=== PATIENT | female | born 1930 | race Caucasian/White ===

== ENCOUNTER → 2017-04-03 | Outpatient (CLI) | payer MEDICARE ==
[~2017-04-03] MED LIST: AMLO10TA; AMLO10TAB; AMOX500C; FLUC10TA; GLUCOSAMINE; MOTR200T4; VICO5TAB; VITMTA PO; [UNRECOGNIZED DRUG - OTHER]
--- NOTE | 2017-04-03 15:07 | REP ---
THORACIC SPINE: AP and lateral views of the thoracic spine are performed and compared to a prior study of 03/01/2017. There are stable compression deformities of T4 and T5. T7 demonstrates a fairly severe compression deformity which has increased since prior study. There is new moderate compression deformity of T10. A mild compression deformity of L1 is stable. There is accentuation of thoracic kyphosis. There is diffuse osteopenia. There is mild diffuse spurring. There is mild diffuse disc space narrowing. There is curvature of the thoracolumbar spine convex to the right. IMPRESSION: Increased significant compression deformity of T7. New moderate compression deformity of T10. Stable compression deformities of T4, T5, and L1. Signed by Linden Mandel MD 04/03/2017 05:27 P
--- NOTE | 2017-04-04 08:05 | REP ---
LUMBOSACRAL SPINE: Five views of the lumbosacral spine performed. There is an old compression deformity of L1 which is stable compared to prior exam at [facility] 03/01/2017. No new compression fracture is seen. There is minimal anterior listhesis of L5 on S1 which appears to be due to posterior facet arthropathy. There is mild diffuse spurring. There is moderate disc space narrowing and subchondral sclerosis at L1-2, L2-3, and L5-S1. There is sclerosis at the posterior facet joints. Posterior elements appear intact. There is sclerosis at the sacroiliac joints. Diffuse vascular calcifications are present. There are multiple metallic clips in the pelvis. IMPRESSION: Degenerative changes. Old mild compression deformity L1 with no acute compression fracture. Signed by Linden Mandel MD 04/03/2017 05:28 P
== END ==
LOC: M RAD 13:13
PROVIDERS: ATTEND Chiropractor
DX: M51.36 Other intervertebral disc degeneration, lumbar region (principal); M51.37 Other intervertebral disc degeneration, lumbosacral region; Z87.81 Personal history of (healed) traumatic fracture

== ENCOUNTER 2017-04-28 10:22 | Day surgery (SDC) | payer MEDICARE ==
[2017-04-28] MEDS: LIDOCAINE VISCOUS 2% SOLN 15ML UDC PO (12:11)
[2017-04-28] MEDS ORDERED: ONDANSETRON 4MG/2ML VIAL (J2405) As Ordered (17:15)
[2017-04-28] MEDS ORDERED: PROPOFOL 200 MG/20 ML VIAL As Ordered ×2 (17:15)
[2017-04-28] MEDS ORDERED: LR 1,000 ML IV (18:00)
[2017-04-28] MEDS ORDERED: ONDANSETRON 4MG/2ML VIAL (J2405) IV (18:00)
== END 2017-04-28 19:30 | disposition home or self-care (01) ==
LOC: M ED 10:22 → M SDC 13:13 → M PED 14:45 → M SDC 19:30
DX: T18.128A Food in esophagus causing other injury, initial encounter (principal); Q39.4 Esophageal web; K22.2 Esophageal obstruction; K44.9 Diaphragmatic hernia without obstruction or gangrene; I10 Essential (primary) hypertension; K21.9 Gastro-esophageal reflux disease without esophagitis; Z88.1 Allergy status to other antibiotic agents; Z88.2 Allergy status to sulfonamides; Z90.710 Acquired absence of both cervix and uterus; X58.XXXA Exposure to other specified factors, initial encounter; Y93.89 Activity, other specified; Y92.89 Other specified places as the place of occurrence of the external cause; Y99.8 Other external cause status
CPT/HCPCS: 43247

== ENCOUNTER 2018-05-19 21:04 | Inpatient (IN) | payer MEDICARE ==
[~2018-05-19] VITALS: Ht 154.9 cm; Wt 58.0 kg
[~2018-05-19 21:04] MED LIST changes: +AMLO10TA5 PO; +AMLO5TAB6; +METO1TAB7; +METO1TAB7 PO
[2018-05-19 22:10] LABS: BASO % 0.5 % (0.0-1.0); EOS # 0.1 10^3/uL (0.0-0.50); EOS % 1.9 % (0.0-3.0); HEMATOCRIT 34.2 % (36.0-47.0); HEMOGLOBIN 11.8 g/dl (12.0-15.5); LYMPH # 1.2 10^3/uL (1.5-4.5); LYMPH % 33.2 % (24.0-44.0); MEAN CORPUSCULAR HEMOGLOBIN 33.2 pg (27.0-33.0); MEAN CORPUSCULAR HGB CONC 34.5 g/dl (32.0-36.5); MEAN CORPUSCULAR VOLUME 96.3 fl (80.0-96.0); MONO # 0.4 10^3/uL (0.0-0.8); MONO % 11.1 % (0.0-5.0); NEUTROPHILS % 53.3 % (36.0-66.0); PLATELET COUNT, AUTOMATED 184 10^3/uL (150-450); RED BLOOD COUNT 3.55 10^6/uL (4.00-5.40); WHITE BLOOD COUNT 3.7 10^3/uL (4.0-10.0)
[2018-05-19 22:14] LABS: INR 0.92; PROTHROMBIN TIME 12.5 SECONDS (12.1-14.4)
[2018-05-19 22:15] LABS: PARTIAL THROMBOPLASTIN TIME 26.4 SECONDS (25.4-37.6)
[2018-05-19 22:18] LABS: BLOOD UREA NITROGEN 5 MG/DL (7-18); CALCIUM LEVEL 8.2 MG/DL (8.8-10.2); CARBON DIOXIDE LEVEL 25 MEQ/L (21-32); CHLORIDE LEVEL 90 MEQ/L (98-107); CREATININE FOR GFR 0.48 MG/DL (0.55-1.30); GLOMERULAR FILTRATION RATE > 60.0 (>32); GLUCOSE, FASTING 108 MG/DL (70-100); POTASSIUM SERUM 3.7 MEQ/L (3.5-5.1); SODIUM LEVEL 126 MEQ/L (136-145)
[2018-05-19] MEDS ORDERED: ATEN50TA2 PO (22:58)
[2018-05-19] MEDS ORDERED: LOSA50TA5 PO (22:58)
[2018-05-19] MEDS ORDERED: MORPHINE 10 MG/ML 1ML VIAL (J2270) IV ONE (23:00)
[2018-05-19] MEDS ORDERED: D5W/0.45% SODIUM CHLORIDE 1,000 ML IV SCH (23:07)
[2018-05-19] MEDS ORDERED: PERCOCET 5MG/325MG TAB PO PRN (23:15)
[2018-05-19] MEDS ORDERED: MORPHINE 4 MG/ML 1ML VIAL/SYRINGE (J2270) IV PRN (23:15)
[2018-05-19] MEDS: DOCUSATE SODIUM 100 MG CAP PO SCH (23:40)
[2018-05-19] MEDS: ATENOLOL 50 MG TAB PO SCH (23:48)
[2018-05-20] MEDS ORDERED: MORPHINE 4 MG/ML 1ML VIAL/SYRINGE (J2270) As Ordered ONE (03:11)
[2018-05-20] MEDS ORDERED: MORPHINE 4 MG/ML 1ML VIAL/SYRINGE (J2270) IV ONE (03:15)
[2018-05-20] MEDS: HEPARIN SOD (PORCINE) 5000 UNITS/ML VIAL SC SCH ×3 (06:11→21:00)
[2018-05-20 07:36] LABS: HEMATOCRIT 30.8 % (36.0-47.0); HEMOGLOBIN 10.7 g/dl (12.0-15.5); MEAN CORPUSCULAR HEMOGLOBIN 32.9 pg (27.0-33.0); MEAN CORPUSCULAR HGB CONC 34.7 g/dl (32.0-36.5); MEAN CORPUSCULAR VOLUME 94.8 fl (80.0-96.0); PLATELET COUNT, AUTOMATED 169 10^3/uL (150-450); RED BLOOD COUNT 3.25 10^6/uL (4.00-5.40); WHITE BLOOD COUNT 5.5 10^3/uL (4.0-10.0)
[2018-05-20 08:00] VITALS: BP 146/68
[2018-05-20] MEDS ORDERED: VANCOMYCIN HCL 1,000 MG, VIAL MATE ADAPTER 1 EACH in D5W 250 ML IV ONE (08:00)
[2018-05-20 08:09] LABS: APPEARANCE, URINE CLOUDY (CLEAR); BACTERIA, URINE AUTO 3+ (NEGATIVE); BILIRUBIN, URINE AUTO NEGATIVE (NEGATIVE); BLOOD, URINE BLOOD NEGATIVE (NEGATIVE); COLOR, URINE AMBER (YELLOW); GLUCOSE, URINE (UA) AUTO NEGATIVE (NEGATIVE); KETONE, URINE AUTO TRACE mg/dL (NEGATIVE); LEUKOCYTE ESTERASE, URINE AUTO 1+ (NEGATIVE); MUCUS, URINE SMALL (NEGATIVE); NITRITE, URINE AUTO NEGATIVE (NEGATIVE); PROTEIN, URINE AUTO NEGATIVE (NEGATIVE); RBC, URINE AUTO 1 /HPF (0-3); SPECIFIC GRAVITY URINE AUTO 1.012 (1.002-1.035); SQUAMOUS EPITHELIAL CELL UR AU 0 /HPF (0-6); UROBILINOGEN, URINE AUTO 0.2 mg/dL (0.0-2.0); WBC, URINE AUTO 16 /HPF (0-3)
[2018-05-20 08:10] LABS: BLOOD UREA NITROGEN 6 MG/DL (7-18); CALCIUM LEVEL 7.8 MG/DL (8.8-10.2); CARBON DIOXIDE LEVEL 27 MEQ/L (21-32); CHLORIDE LEVEL 89 MEQ/L (98-107); CPK CREATINE PHOSPHOKINASE 270 U/L (26-192); CREATININE FOR GFR 0.56 MG/DL (0.55-1.30); GLOMERULAR FILTRATION RATE > 60.0 (>32); GLUCOSE, FASTING 134 MG/DL (70-100); MB/CK RELATIVE INDEX 1.81 (< OR =4); POTASSIUM SERUM 3.8 MEQ/L (3.5-5.1); SODIUM LEVEL 125 MEQ/L (136-145); TROPONIN I < 0.02 NG/ML (< 0.10)
--- NOTE | 2018-05-20 08:13 | REP ---
Right femur: Three views. History: Trauma. Findings: Three views right femur demonstrate a overriding comminuted spiral fracture of the subtrochanteric right femur. There is lateral displacement. Electronically Signed by Ronan Aranda MD 05/20/2018 08:05 A
--- NOTE | 2018-05-20 08:16 | REP ---
Pelvis right hip: Three views. History: Trauma. Findings: AP view of the pelvis and AP and frog-leg views of the right hip are obtained. There is a spiral fracture of the subtrochanteric right femur with medial displacement and override. There is diffuse osteopenia. No acute pelvic fracture is seen. There is sclerosis on the iliac sides of the SI joints bilaterally which may reflect a healing insufficiency fractures. Vascular calcification and post surgical clips are noted. Bowel gas pattern is normal. Impression: Comminuted spiral subtrochanteric right femur fracture with medial override. Diffuse osteopenia. Electronically Signed by Ronan Aranda MD 05/20/2018 08:08 A
--- NOTE | 2018-05-20 08:18 | REP ---
Chest x-ray: Single AP view. History: Trauma. Comparison study: December 10, 2007. Findings: The lungs are well inflated and clear. Heart size is borderline unchanged. The aorta is calcific and tortuous. There is diffuse osteopenia. No infiltrate is seen. Pulmonary vasculature is not increased. Impression: Borderline heart size. Otherwise no acute disease. Electronically Signed by Ronan Aranda MD 05/20/2018 08:09 A
[2018-05-20 08:34] LABS: CHLORIDE,RANDOM URINE 74 MEQ/L; POTASSIUM RANDOM URINE 75.7 MEQ/L; SODIUM,RANDOM URINE 55 MEQ/L; URIC ACID,RANDOM URINE 67.1 MG/DL
[2018-05-20] MEDS ORDERED: ACETAMINOPHEN 500 MG TAB PO PRN (09:00)
[2018-05-20] MEDS: DOCUSATE SODIUM 100 MG CAP PO SCH (09:39)
[2018-05-20] MEDS: LOSARTAN 50 MG TAB PO SCH (09:40)
--- NOTE | 2018-05-20 10:23 | CR ---
DATE OF CONSULTATION: 05/20/2018 CHIEF COMPLAINT: Right subtrochanteric femur fracture. HISTORY OF PRESENT ILLNESS: 88-year-old female who was eating cookies with her daughter yesterday at approximately 2:30 p.m. She went to grab some scissors, tripped and fell over her slippers sustaining a twisting injury to her right hip. She was not able to ambulate after that. There was no loss of consciousness or head injury. She has not had any injury like this before but she did have an episode where she slipped over her slippers. She was at her grandson's place. There is no prior pain in the hip prior to this injury. PAST MEDICAL HISTORY: Hypertension. MEDICATIONS AT HOME: - Losartan 50 mg by mouth once daily - atenolol 50 mg by mouth once daily at bedtime DRUG ALLERGIES: CEPHALOSPORINS, CLINDAMYCIN, QUINOLONES, SULFA DRUGS, SULFA DRUG CROSS REACTORS, TETRACYCLINE MEDICATIONS. SURGICAL HISTORY: Hysterectomy. SOCIAL HISTORY: She lives alone. Her is . She lives in a house that is one story. She is a non-smoker. PHYSICAL EXAMINATION: Vital signs: 140/64, pulse 55, respiratory rate 18, 96% on room air. Alert and oriented times three. Mood is pleasant. Affect is positive, slightly anxious. Right lower extremity was placed in traction by the nurses. Upon inspection of both lower extremities, there is a little bit of swelling and deformity to the right proximal femur. Nothing on the left side. There is a moderate amount of tenderness at that site and in the groin. Nothing distal or on the left side. She is able to wiggle her toes and dorsal flex and plantar flex her feet on both sides. Feet are warm and well perfused. Strong dorsalis pedis pulse on both sides. LABORATORY: Hemoglobin of 10.7 this morning, white blood cell count 5.5. Coagulation factors: PT 12.5, INR 0.92. Chemistries reveal low sodium and low chloride. RADIOGRAPHS: AP and frogleg lateral x-ray of the right hip and pelvis reveal a short spiral fracture of the subtrochanteric region of the right hip. There is no obvious fracture distally. No obvious femoral head, neck, or shaft fracture seen. ASSESSMENT AND PLAN: This 88-year-old female with right subtrochanteric hip fracture needs to first clear medicine from the hospitalist point of view, this is Dr. Alba. Apparently they need a echo and this will delay the surgery to be scheduled tomorrow so for now, we will make her diet and tolerated and n.p.o. at midnight. She is on subcutaneous heparin which we will hold tomorrow morning the day of surgery. I have discussed and consented for surgery with risks, alternatives and benefits discussed with the patient for open reduction internal fixation of the right hip in the form of long cephalomedullary nail. Options for this would include TFN-A or reconstruction nail. We should try to get this done within 48 hours ideally but given the condition apparently of her heart, this will delay her surgery until 24 hours post admission. For now, she will be bed rest and pain control with Tylenol and opioid medications. JENN
--- NOTE | 2018-05-20 10:44 | HPE ---
DATE OF ADMISSION: 05/19/2018 CHIEF COMPLAINT: Hip pain, status post fall, femur fracture. HISTORY OF PRESENT ILLNESS: Patient is an 88-year-old female with a significant past medical history of well controlled hypertension. She also has a history of complicated diverticulitis, she is status post surgery with colostomy that is in place. She states that they thought it might have been cancer but, however, it turned out to be all infectious diverticulitis. She present to the emergency room after a mechanical fall with intractable right hip pain, unable to ambulate. X-rays of the hip and pelvis shows a femur fracture. She denies any loss of consciousness. She denies any palpitations, cough, chest pain, urinary symptoms, abdominal pain, constipation, or diarrhea. Her colostomy bag is draining appropriately. PAST MEDICAL HISTORY: Hypertension. PAST SURGICAL HISTORY: She has had hysterectomy and colostomy. HOME MEDICATIONS: - losartan - hydrochlorothiazide - atenolol ALLERGIES: CEPHALOSPORINS, CLINDAMYCIN, QUINOLONES, SULFA DRUGS, SULFA DRUG CROSS REACTOR, TETRACYCLINE, old reactions are unknown. SOCIAL HISTORY: Denies tobacco, alcohol, or illicit drug use. FAMILY HISTORY: No family history of premature coronary artery disease (CAD). REVIEW OF SYSTEMS: A 12 point review of system was completed all which were negative except those listed in the history of present illness. ADMISSION: VITALS: Temperature 97.4, pulse 53, respirations 20, sating at 99% on room air. Blood pressure 125/58. PHYSICAL EXAMINATION: GENERAL: She is well nourished and in no apparent distress. Head is normocephalic, atraumatic. Eyes extraocular movements are intact. Pupils equal round and reactive to light. NECK: Supple, no jugular venous pulse (JVP). LUNGS: Clear to auscultation. No crackles, wheezes, rales, or rhonchi. CARDIOVASCULAR: Regular rate and rhythm. Normal S1, S1. No murmurs, gallops or rub. ABDOMEN: Soft, nontender, nondistended. Colostomy bag in place draining. EXTREMITIES: No pitting edema or calf tenderness. Over the hip there is no erythema. NEUROLOGICAL EXAM: Alert and oriented times three. No focal deficit appreciated in the exam. LABS AND IMAGING DONE IN THE EMERGENCY ROOM: White count 3.7, hemoglobin and hematocrit 11 over 34, platelet count of 184, coags within normal limits. Chemistries - shows a sodium of 126, chloride of 90, BUN and creatinine of 5 and 0.48. Imaging done in the emergency room - a chest x-ray shows cardiomegaly in the prominent aortic notch, otherwise no acute disease. X-ray of the hip and pelvis shows a fracture of the femur. ASSESSMENT AND PLAN: Femur fracture status post mechanical fall, bedrest for now. Dr. Trinidad of orthopedics to see her in the a.m. Nothing by mouth after midnight. D5 half-normal saline. Morphine and Percocet as needed pain control. Colace as well is on for bowel prep. The patient has a revised cardiac risk index of 0 which is a 3.9% cardiovascular risk of surgery. Her EKG shows nonspecific ST and T wave changes. She has no family history of premature CAD. She denies any chest pain or shortness of breath on ambulation, however, she ambulates very minimally. She has no exercise limiting symptoms. Because of the nonspecific ST and T wave changes we will order and echocardiogram and relatively sedentary lifestyle for the patient for clearance. For hypertension we will continue losartan and atenolol, blood pressure is controlled. We will hold the hydrochlorothiazide portion of her blood pressure medication as she is mildly hypernatremic at 126, hyponatremia likely secondary to diuretic therapy. We will hold her hydrochlorothiazide. Supportive deep venous thrombosis (DVT) prophylaxis, heparin subcutaneous, gastrointestinal (GI) prophylaxis is not indicated. Diets - nothing by mouth after midnight. She is on maintenance D5 half normal saline at 60 mL an hour. Fingersticks twice a day while nothing by mouth. Activity - bedrest.
[2018-05-20] MEDS ORDERED: PILL CRUSHER/CUTTER 1 EACH XX PRN (11:45)
[2018-05-20 12:00] VITALS: BP 144/67
[2018-05-20] MEDS ORDERED: MORPHINE 4 MG/ML 1ML VIAL/SYRINGE (J2270) IV PRN (12:00)
[2018-05-20] MEDS ORDERED: NS 1,000 ML IV ONE (12:00)
[2018-05-20] MEDS: PERCOCET 5MG/325MG TAB PO PRN ×2 (12:32→21:01)
[2018-05-20 13:53] LABS: CPK CREATINE PHOSPHOKINASE 297 U/L (26-192); MB/CK RELATIVE INDEX 1.82 (< OR =4); TROPONIN I < 0.02 NG/ML (< 0.10)
[2018-05-20 14:30] VITALS: BP 157/71
[2018-05-20 16:35] LABS: BLOOD UREA NITROGEN 7 MG/DL (7-18); CARBON DIOXIDE LEVEL 26 MEQ/L (21-32); CHLORIDE LEVEL 91 MEQ/L (98-107); CREATININE FOR GFR 0.53 MG/DL (0.55-1.30); GLOMERULAR FILTRATION RATE > 60.0 (>32); GLUCOSE, FASTING 124 MG/DL (70-100); POTASSIUM SERUM 3.7 MEQ/L (3.5-5.1); SODIUM LEVEL 125 MEQ/L (136-145)
--- NOTE | 2018-05-20 18:05 | IPN ---
DATE: 05/20/2018 The patient admitted overnight. Reported right hip pain. Denies any chest pain, pressure or discomfort. Denies any fevers or chills. VITAL SIGNS: Temperature 97.7, pulse 53, respiratory rate 16, blood pressure 144/67, pulse oximetry 97% on room air. LABORATORY DATA: WBC 5.5, hemoglobin and hematocrit 10.7/30.8, platelets 169. Chemistry: Sodium 125, potassium 3.7, chloride 91, bicarbonate 26, BUN 7, creatinine 0.53. Cardiac enzymes negative times two. PHYSICAL EXAMINATION: GENERAL: The patient alert, comfortable, in no acute distress. HEENT: Normocephalic, atraumatic. PULMONARY: Bilaterally clear. CARDIAC: Regular, S1, S2. No murmurs detected. ABDOMEN: Soft, nontender. Colostomy bag in place draining. EXTREMITIES: No clubbing, cyanosis, or edema. ASSESSMENT AND PLAN: This is an 88-year-old female patient, baseline healthy, lives at home, is independent with history of hypertension as well as complicated diverticulitis with also small bowel obstruction complicated with colostomy, who presented with a mechanical fall. 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 The patient had mechanical fall with femur fracture. 1. Mechanical fall with femur fracture. The patient is low-intermediate risk for intermediate risk procedure. Given new EKG changes with T wave inversion on V3, V4, serial cardiac enzyme was done. Echocardiogram was also ordered by nighttime provider. Currently pending echocardiogram results. Holding hydrochlorothiazide given hyponatremia. Preoperative optimization pending echocardiogram results and nephrology input. 2. 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 Urine study appreciated. Nephrology consulted. Followup sodium. The patient currently asymptomatic. 3. Hypertension. Continue atenolol, losartan. Holding hydrochlorothiazide. We will monitor the patient on telemetry. If the patient develops worsening bradyarrhythmia, we will discontinue atenolol. Currently, the patient has a heart rate in the range of 50s. Telemetry monitoring. 4. Colostomy. Management as per nursing staff. 5. Deep vein thrombosis (DVT) prophylaxis. Heparin subcutaneous. Likely will be on Xarelto postoperatively. DISPOSITION: Likely going to operating room (OR) tomorrow pending echocardiogram and nephrology consultation for hyponatremia.
[2018-05-20] MEDS: SENOKOT S TAB PO SCH (21:00)
[2018-05-20] MEDS ORDERED: TOLVAPTAN 7.5 MG HALF-TAB PO ONE (21:00)
[2018-05-20] MEDS: ATENOLOL 50 MG TAB PO SCH (21:00)
[2018-05-20 22:00] VITALS: BP 152/67
[2018-05-20 23:50] VITALS: BP 125/63
[2018-05-21] VITALS (7 sets, daily range): BP systolic 121–170; BP diastolic 64–78
[2018-05-21] MEDS ORDERED: VANCOMYCIN HCL 1,000 MG, VIAL MATE ADAPTER 1 EACH in D5W 250 ML IV ONE (06:00)
[2018-05-21] MEDS: HEPARIN SOD (PORCINE) 5000 UNITS/ML VIAL SC SCH (06:04)
--- NOTE | 2018-05-21 06:11 | ECHO ---
DATE OF PROCEDURE: 05/20/2018 REFERRING PHYSICIAN: Dr. Trudy Alba INDICATION: Abnormal ECG. HEIGHT: 155 cm. WEIGHT: 80 kg. 2-D MEASUREMENTS: Proximal ascending aorta: 3.5 cm Ventricular septum: 0.96 cm Posterior wall: 0.98 cm Left ventricle diastole: 4.6 cm Aortic root: 2.6 cm Left atrium: 3.5 cm Aortic annulus: 2.0 cm Inferior vena cava: 1.6 cm DOPPLER MEASUREMENTS: Mild aortic regurgitation No aortic stenosis Aortic valve velocity: 124 cm/sec LVOT velocity: 112 cm/sec LVOT VTI: 28.7 cm Mitral E velocity: 56.2 cm/sec Mitral A velocity: 89.3 cm/sec Mitral deceleration time: 264 ms Very mild tricuspid regurgitation Estimated right ventricular systolic pressure 26 mmHg assuming a right atrial pressure of 5 mmHg Pulmonary artery systolic pressure 24 mmHg by pulmonary acceleration time method MITRAL ANNULAR TISSUE DOPPLER: E prime lateral: 6.4 cm/sec E prime septal: 5.2 cm/sec DESCRIPTION: The rhythm was sinus bradycardia. Image quality was adequate. No pericardial effusion. This was a 2-D, M-mode, color flow Doppler and pulse wave Doppler examination and included mitral annular tissue Doppler. CONCLUSIONS: 1. Normal left ventricle internal dimensions and wall thickness. Normal regional LV wall motion and wall thickening. Normal LV systolic function. Grade 1 LV diastolic dysfunction (impaired relaxation filling pattern). 2. 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 Mild aortic regurgitation. No aortic stenosis. 3. Moderate mitral annular calcification. No mitral regurgitation or mitral stenosis. 4. Otherwise normal appearing echocardiogram-Doppler findings.
[2018-05-21 06:43] LABS: HEMATOCRIT 28.7 % (36.0-47.0); HEMOGLOBIN 9.9 g/dl (12.0-15.5); MEAN CORPUSCULAR HEMOGLOBIN 32.9 pg (27.0-33.0); MEAN CORPUSCULAR HGB CONC 34.5 g/dl (32.0-36.5); MEAN CORPUSCULAR VOLUME 95.3 fl (80.0-96.0); PLATELET COUNT, AUTOMATED 156 10^3/uL (150-450); RED BLOOD COUNT 3.01 10^6/uL (4.00-5.40); WHITE BLOOD COUNT 2.9 10^3/uL (4.0-10.0)
[2018-05-21 07:16] LABS: BLOOD UREA NITROGEN 6 MG/DL (7-18); CALCIUM LEVEL 8.4 MG/DL (8.8-10.2); CARBON DIOXIDE LEVEL 27 MEQ/L (21-32); CHLORIDE LEVEL 97 MEQ/L (98-107); CREATININE FOR GFR 0.43 MG/DL (0.55-1.30); GLOMERULAR FILTRATION RATE > 60.0 (>32); GLUCOSE, FASTING 105 MG/DL (70-100); MAGNESIUM LEVEL 1.7 MG/DL (1.8-2.4); POTASSIUM SERUM 3.6 MEQ/L (3.5-5.1); SODIUM LEVEL 132 MEQ/L (136-145)
--- NOTE | 2018-05-21 07:29 | IPN ---
DATE: 05/21/2018 CHIEF COMPLAINT: Right subtrochanteric hip fracture. HISTORY OF PRESENT ILLNESS: This pleasant 88-year-old female was seen today, post admit day 1 for right subtrochanteric hip fracture. She is doing well. She is in the Antonio traction splint for her right lower extremity, tolerating this well. She does not have any specific complaints other than relaying an anecdote about seeing another provider at the [facility]. She complains about a little bit of discomfort in her hip, but overall she is doing well. PHYSICAL EXAMINATION: VITAL SIGNS: 98.1 temperature, 125/63 blood pressure, pulse rate of 48, respiratory rate 18, 97% on room air. She is alert and oriented times three. She easy to converse with. Mood and affect is pleasant and positive. Her right lower extremity is still in the Antonio splint/traction setup. She appears to be tolerating this well. It is not causing any skin irritation or breakdown. She is able to wiggle her toes, dorsiflex and plantar flex her foot. She has normal sensation throughout the foot in the superficial and deep peroneal nerves as well as saphenous, sural and tibial. She has good strong dorsalis pedis pulse. Her hip is marked. Her left lower extremity is normal. Laboratory exam reveals a hemoglobin this morning of 9.9. WBC 2.9. Coagulation not repeated. Chemistry - Sodium appears to be trending upward from 126 on admission to 132 this morning. Her chloride 92, 97 this morning. ASSESSMENT/PLAN: This 88-year-old female I am planning to do a cephalomedullary nail to fix her subtrochanteric femur fracture at some point this afternoon. We are still awaiting clearance from the web application dev specialist. Her echo looked fairly benign when I read the report today so I do not expect her cardiac function will delay her surgery, but we are waiting on nephrology to give the final clearance before going ahead with surgery. For now we will ensure that she remains nothing by mouth.
[2018-05-21] MEDS ORDERED: MAG SULF 1GM/100ML (MAG RUN) 1 GM in APPROPRIATE DILUENT 1 EA IV ONE (08:15)
[2018-05-21] MEDS ORDERED: POTASSIUM CHLORIDE 10 MEQ SR TABLET PO ONE (08:15)
[2018-05-21] MEDS: SENOKOT S TAB PO SCH ×2 (09:15→22:37)
[2018-05-21] MEDS: LOSARTAN 50 MG TAB PO SCH (09:15)
[2018-05-21] MEDS ORDERED: cefTRIAXone SOD 1 GM in D5W MINI-BAG PLUS 50 ML IV SCH (09:45)
[2018-05-21] MEDS: KCL 10MEQ/100ML SWI (KRUN) 10 MEQ in APPROPRIATE DILUENT 1 EA IV SCH ×4 (10:19→12:32)
[2018-05-21] MEDS ORDERED: ceFAZolin 1GM INJ (J0690 PER 500MG) As Ordered ONE (13:32)
[2018-05-21] MEDS: AMOXICILLIN 500 MG CAP PO SCH ×2 (14:00→22:36)
--- NOTE | 2018-05-21 14:39 | IPNPDOC ---
Text Note Date of Service The patient was seen on 05/21/18. NOTE Subjective: Pt feels well. Pain well controlled. States she had a mechanical f all. No dizziness/syncope/CP prior to fall. Ambulates in the grocery stores at baseline down aisles with no SOB/CP. Objective: Vitals: (see below) General: No acute distress, laying comfortably in bed. HEENT: Moist mucous membranes. Neck: No JVD or lymphadenopathy Cardiac: RRR, No murmurs Pulm: Clear to auscultation b/l. No wheezing, rhonchi Abd: NT/ND + BS. Colostomy bag with no leak. No abdominal pain. Ext: No edema or cyanosis. Distal pulse intact. Right leg in traction. Labs (see below) Images: Echocardiogram on 05/20/18 CONCLUSIONS: 1. Normal left ventricle internal dimensions and wall thickness. Normal regional LV wall motion and wall thickening. Normal LV systolic function. Grade 1 LV diastolic dysfunction (impaired relaxation filling pattern). 2. 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 Mild aortic regurgitation. No aortic stenosis. 3. Moderate mitral annular calcification. No mitral regurgitation or mitral stenosis. 4. Otherwise normal appearing echocardiogram-Doppler findings. Assessment/Plan 1. Hip fracture status post mechanical. Right lower extremity in traction, pending OR. Denies chest pain or palpitations. Echo at that she see above). Management per orthopedics. 2. History of recurrent UTIs. + UA, however no dysuria. States she takes amoxicillin when she has UTIs. 3. Hyponatremia- hydrochlorothiazide discontinued. Component of SIADH. Status post tolvaptan. Appreciate nephrology input. 4. Hypertension controlled. Continue valsartan. Hold atenolol given bradycardia. Hold HCTZ 5. History of diverticulitis status post colostomy. DVT prophy: Per orthopedics RCRI 0. Patient undergo an intermediate risk procedure. VS,Fishbone, I+O VS, Fishbone, I+O Laboratory Tests 05/20/18 15:59 Calcium Level 8.0 L 05/21/18 05:41 Calcium Level 8.4 L, Red Blood Count 3.01 L, Mean Corpuscular Volume 95.3, Mean Corpuscular Hemoglobin 32.9, Mean Corpuscular Hemoglobin Concent 34.5, Red Cell Distribution Width 12.3 Vital Signs Date Time Temp Pulse Resp B/P (MAP) Pulse Ox O2 Delivery O2 Flow Rate FiO2 05/21/18 09:15 124/60 05/21/18 06:00 97.9 57 18 97 05/19/18 23:53 Room Air I&O- Last 24 Hours up to 6 AM 05/21/18 06:00 Intake Total 1350 ml Output Total 1950 ml Balance -600 ml ZION MILTON MD May 21, 2018 14:39
[2018-05-21] MEDS ORDERED: dexameTHASONE 4 MG/ML 1ML VIAL (J1100) As Ordered ONE (17:52)
[2018-05-21] MEDS ORDERED: ePHEDrine SULFATE 25 MG/5 ML(5MG/ML) SYRINGE As Ordered ONE (17:52)
[2018-05-21] MEDS ORDERED: PROPOFOL 200 MG/20 ML VIAL As Ordered ONE (17:52)
[2018-05-21] MEDS ORDERED: ROCURONIUM BROMIDE 50 MG/5 ML VIAL As Ordered ONE (17:52)
[2018-05-21] MEDS ORDERED: fentaNYL 100 MCG/2 ML INJECTION (J3010) As Ordered ONE ×2 (17:52→20:04)
[2018-05-21] MEDS ORDERED: MIDAZOLAM INJ 2 MG/2 ML VIAL (J2250) As Ordered ONE (17:52)
[2018-05-21] MEDS ORDERED: LIDOCAINE 2% INJ 100 MG/5 ML SDV (FOR ANES.) As Ordered ONE (17:52)
[2018-05-21] MEDS ORDERED: HYDROmorphone HCL 2 MG/ML 1ML VIAL (J1170) As Ordered ONE (18:21)
[2018-05-21] MEDS ORDERED: TRANEXAMIC ACID 100 MG/ML 10ML VIAL As Ordered ONE (18:37)
[2018-05-21] MEDS ORDERED: GLYCOPYRROLATE INJ 0.2 MG/ML 2 ML VIAL As Ordered ONE (19:09)
[2018-05-21] MEDS ORDERED: PHENYLephrine HCL 500 MCG/5 ML (100MCG/ML) SYRINGE (J2370) As Ordered ONE (19:13)
[2018-05-21] MEDS ORDERED: ONDANSETRON 4MG/2ML VIAL (J2405) As Ordered ONE (19:30)
[2018-05-21] MEDS ORDERED: NEOSTIGMINE 10 MG/10 ML VIAL (J2710) As Ordered ONE (19:38)
[2018-05-21] MEDS ORDERED: fentaNYL 100 MCG/2 ML INJECTION (J3010) IV PRN (20:15)
[2018-05-21] MEDS ORDERED: NORCO, ANEXSIA 5/325MG TABLET (HYDROcodone/ACETAMINOPHEN) PO PRN (20:15)
[2018-05-21] MEDS ORDERED: MORPHINE 4 MG/ML 1ML VIAL/SYRINGE (J2270) IV PRN (20:15)
[2018-05-21] MEDS ORDERED: ONDANSETRON 4 MG TAB (S0181) PO PRN (20:15)
[2018-05-21] MEDS ORDERED: FLEET ENEMA PR PRN (20:15)
[2018-05-21] MEDS ORDERED: LR 1,000 ML IV SCH (20:15)
[2018-05-21] MEDS ORDERED: ACETAMINOPHEN TAB 650MG DOSE (2X325MG) PO PRN (20:15)
[2018-05-21] MEDS ORDERED: ONDANSETRON 4MG/2ML VIAL (J2405) IV PRN ×2 (20:15)
--- NOTE | 2018-05-21 21:09 | CR ---
DATE OF CONSULTATION: 05/21/2018 REQUESTING PHYSICIAN: Dr. Trudy Alba CONSULTING PHYSICIAN: Dr. Lyon REASON FOR CONSULTATION: Management of hyponatremia. CHIEF COMPLAINT: Patient presented to the hospital after a fall and a right femur fracture. HISTORY OF THE PRESENT ILLNESS: Deangelo Palma is an 88-year-old female with a past medical history of hypertension, colostomy status. She lives at home. She fell in the kitchen and hit her right hip, and she came to the hospital with hip pain. Further evaluation showed that she had a right femur fracture. The patient was admitted. Further lab work showed that she had a sodium of 126 on arrival. She was initially hydrated with normal saline that did not help improve her sodium level. Her sodium last evening was 125; she needed a medical clearance before the surgery, so nephrology service was called for further help in the management of this patient and stabilization of her hyponatremia. I already discussed the case with the hospitalist, Dr. Trudy Alba, last night. Looking at her labs, I gave her a dose of tolvaptan 7.5 mg by mouth times one dose, and she made a significant amount of dilute urine after that. Her sodium today morning was 132. I saw and evaluated the patient today morning at the bedside. She was awake and alert. She was able to provide me with a history. She reported a moderate amount of pain at the hip fracture site. PAST MEDICAL HISTORY: Hypertension. History of diverticulitis and colostomy status in the past. PAST SURGICAL HISTORY: Status post hysterectomy in the past. 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 ALLERGIES: The patient is allergic to CLINDAMYCIN, CEPHALOSPORIN, QUINOLONES, SULFA DRUGS and TETRACYCLINE. FAMILY HISTORY: No significant family history of end-stage renal disease requiring hemodialysis. SOCIAL HISTORY: The patient lives at home. She denies any illicit drug abuse, alcohol abuse, or smoking. REVIEW OF SYSTEMS: CONSTITUTIONAL: She denies any fevers or chills. EYES: She denies any blurry vision, double vision. ENT: She denies any dysphagia, odynophagia, ear discharge. CARDIOVASCULAR: She denies any chest pain, palpitations. RESPIRATORY: She denies any shortness of breath or cough. GASTROINTESTINAL: She reports a history of colostomy; otherwise, she denies any nausea or vomiting. GENITOURINARY: She denies any dysuria or hematuria. MUSCULOSKELETAL: She reports fall and right hip fracture. CENTRAL NERVOUS SYSTEM (LAMPS TESTER AND INSPECTOR): She denies any strokes or seizures. SKIN: She denies any rashes or ulcers. HEMATOLOGICAL/ONCOLOGICAL: She denies any easy bleeding or bruising. ENDOCRINE: She denies any history of hyperthyroidism or hypothyroidism. All other review of systems is negative. HOME MEDICATIONS: Patient's home medications include losartan, atenolol, hydrochlorothiazide. PHYSICAL EXAMINATION: GENERAL: The patient is awake, alert, oriented times three, laying in bed, mild painful distress. VITAL SIGNS: Temperature is 97.9 degrees Fahrenheit, blood pressure 124/60, pulse is 57, respiratory rate of 18, saturating 97% on room air. HEAD AND NECK EXAM: Extraocular muscles intact. Pupils equally round and reactive to light. Mucous membranes are moist. Neck is supple. There is no jugular venous distention (JVD). CARDIOVASCULAR: S1, S2, regular rate. No murmur, rub or gallop. No edema of the lower extremities. RESPIRATORY: Chest is clear to auscultation bilaterally. Bilateral equal air entry. No rales or rhonchi. ABDOMEN: Soft. Positive bowel sounds. Right lower quadrant colostomy was noted. GENITOURINARY: Bladder is not palpable. MUSCULOSKELETAL: Patient's right leg is in an immobilizer at this time. The left leg has normal range of movement. CENTRAL NERVOUS SYSTEM (LAMPS TESTER AND INSPECTOR): No focal deficit. Power is 5/5 in bilateral upper extremities. LYMPH NODES: No significant cervical, axillary or inguinal lymphadenopathy. LAB REVIEW: CBC showed a WBC of 2.9, hemoglobin 9.9, platelets are 156. Urinalysis done yesterday showed it was cloudy. Urine random osmolality was 457, random sodium was 55, random chloride was 74. A BMP done yesterday showed sodium 125, potassium 3.7, chloride 91, bicarbonate is 26, BUN is 7, creatinine is 0.53, calcium is 8. A BMP done today morning showed sodium 132, potassium 3.6, chloride 97, bicarbonate 27, BUN is 6, creatinine is 0.43, calcium 8.7, magnesium is 1.7. Microbiology: Blood cultures are urine cultures are pending. IMAGING: X-ray of the right femur was done, which showed overriding comminuted spiral fracture of the subtrochanteric right femur. CURRENT INPATIENT MEDICATIONS: The patient's inpatient medications include magnesium sulfate 1 gram IV times one dose today morning. She was given one liter of normal saline bolus yesterday. She was also given vancomycin 1 gram IV today morning. She is on atenolol 50 mg nightly. She is on Colace. She is on losartan 50 mg by mouth daily. She was given a dose of potassium chloride 40 mEq by mouth times one dose, and she was given a dose of tolvaptan 7.5 mg by mouth yesterday. ASSESSMENT: An 88-year-old female with hypertension, euvolemic hyponatremia with high urine osmolality and right femur fracture. PLAN: 1. Hyponatremia. 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 She was on losartan and hydrochlorothiazide combination, which in elderly can cause hyponatremia. Hydrochlorothiazide has already been stopped. Since she needed surgery today, she was given a dose of tolvaptan, which has improved her sodium from 125 to 132 today morning. I would avoid further use of tolvaptan at this point since the patient is nothing by mouth for the surgical procedure at this point. Continue the free water restriction. If her sodium does not improve, I would probably stop her losartan as well and switch her to another antihypertensive regimen. 2. Right femur fracture. The patient is nothing by mouth for surgical procedure. She is optimized and cleared from nephrology standpoint for the surgical procedure at this point. 3. Hypertension. The patient's blood pressure is optimized at this point. Continue current dose of losartan and atenolol. If needed, she can be started on amlodipine as well. 4. Hypomagnesemia. The patient was already given magnesium sulfate 1 gram IV times one dose today morning. 5. Anemia. Her hemoglobin has dropped from 11.1 to 9.9 since admission, most likely it might be associated with right hip fracture. Transfuse as needed for hemoglobin 8 or below. The rest of the management is as per primary team and surgical service. Thank you for involving me in the care of this patient. I shall be happy to follow the patient along with you tomorrow morning.
--- NOTE | 2018-05-21 22:49 | RO ---
DATE OF PROCEDURE: 05/21/2018 PREPROCEDURE DIAGNOSIS: Right subtrochanteric femur fracture. POSTPROCEDURE DIAGNOSIS: Right subtrochanteric femur fracture. PLANNED PROCEDURE: Right hip TFN-A long nail. PROCEDURE PERFORMED: Right hip TFN-A long nail. SURGEON: Hermilo Trinidad MD NURSES' REGISTRY DIRECTOR: Tavo Cunningham ANESTHESIA: General anesthetic. ANESTHESIOLOGY: Dr. Meng IMPLANTS USED: Synthes 11 mm/125-degree TFN-A, 360 mm right. OPERATIVE PREAMBLE: This 88-year-old female had a fall. She tripped over her slippers, while at home, sustaining a twisting injury and was found to have a subtrochanteric femur fracture on the right side. I saw and assessed her, booked her for a long TFN-A of her right femur. I also met her family preoperatively in holding. They are in agreement with the plan. We discussed the pros and cons, the risks and benefits of the procedure, and Deangelo had signed the consent form as she was very lucid and a pleasant lady. DESCRIPTION OF PROCEDURE: The patient was brought to the operating theatre, administered general anesthetic, and placed supine in the traction set up with the right leg in traction, the left leg in the well leg gunderson, flexed up and externally rotated. AP, lateral radiographs were taken. This demonstrated the fracture to be well aligned. It was a short spiral fracture of the subtrochanteric region. It aligned a little bit better with some laterally directed force on the medial distal fragment. We then prepped and draped the hip in the usual sterile fashion, allowed this to thoroughly dry, and then applied the shower curtain style drape, draped over the other side. I began by making a 3-inch incision centered three fingerbreadths proximal at the level of the greater trochanter. I carried this dissection down through the skin and subcutaneous tissue, achieved meticulous hemostasis. Next, I passed a guidewire at the level of the greater trochanter on the AP and lateral radiographs, aiming for the lesser trochanter. I then overreamed this using the proximal reamer and soft tissue protector. I then attempted to pass the ball tip guidewire. This took a number of attempts and re-reduction maneuvers on both the AP and lateral radiographs. I tried to bend the tip of the guidewire and also used the finger manipulator. Eventually, I made a distally based incision above 4 inches at the level of the fracture site. I carried this dissection down through skin and subcutaneous tissue and then released the tensor fascia lakshmi. I palpated the guidewire at the fracture site, and then I used an Allis clamp to direct this into the distal fragment. I passed the guidewire down to the center of the distal femur on both the AP and lateral radiographs. I then measured this to be about 380 mm, and we took a little bit off, I chose a 360 mm nail, 125 degree angle with 11 mm diameter. We sequentially reamed up to 12.5, and it did have some good chatter at that size. We selected the nail and passed this overtop of the guidewire, reducing the fracture nicely and took radiographs throughout to ensure it was properly placed distally as well as well seated proximally. We then attached the 125 degree drop down guide, ensured that the guidewire system was down to the lateral aspect of the bone and then passed the 3.2 mm partially threaded guidewire up into the center of the femoral head and neck on AP and lateral radiographs. We passed this to subchondral bone. This measured 92 mm and as such, I selected a 90 mm screw. We overreamed this all the way up to the subchondral bone. Unfortunately, when we were passing this, it did appear to be a little bit too long, so we backed the helical blade off, right out but the guidewire came out. We then slid the obturator through to try to re-reduce the guidewire and then the guidewire unfortunately penetrated the subchondral bone. We backed this off so that it was in a normal position. Then, following this, we then passed an 85 mm fully threaded helical blade. This sat nicely and was well short of the subchondral bone on the AP and lateral radiographs but definitely long enough so that the tip of the apex was under 25 mm. We then turned our attention distally. We placed two fully threaded cortical locking screws in the distal most locking hole and then in the oblong hole. These both measured 40 mm in length. We did this using a perfect yakutat technique and small percutaneous stab hole type incisions. I then thoroughly irrigated all the incisions using normal saline. We took final radiographs at each site and saved them onto the system. I then closed the tensor fascia lakshmi with interrupted #1 Vicryl sutures, followed by the subcutaneous tissue with interrupted #2-0 Vicryl, and the skin with steve. The skin was cleaned with wet and dry dressing, the drape taken down, and then the wounds applied with nonstick dressing followed by sterile 4 x 8 gauze, ABD dressing, and cloth tape. The patient was out of the traction setup and the traction was taken off before we fully passed the nail. We did lock the nail proximally to control for rotation. Once the dressing was applied, the patient was woken up from the general anesthetic, transferred off of the operating table and taken to the post-anesthetic care unit in stable condition. All sponge, needle, and instrument counts were correct, and there were no complications or excess blood loss associated with the procedure. Estimated blood loss was 150 mL, and we did give the patient residential through the case 2 grams of intravenous tranexamic acid to try and control the bleeding as she was a little bit oozy. Plan for the patient is to be weightbearing as tolerated. They will mobilize with physical therapy (PT) and occupational therapy (OT) while in the hospital. They will be readmitted to the hospitalist service under the hospitalist physician. Venous thromboembolism (VTE) prophylaxis will be achieved with Xarelto 10 mg by mouth once daily for the next 35 days. [place] will be discontinued at approximately postoperative day #14. In addition, they were given vancomycin preoperatively for infection control and so these levels should be adequate for the next 12-24 hours to prevent any infection. MTDD
[2018-05-22] VITALS (14 sets, daily range): BP systolic 94–144; BP diastolic 54–70
[2018-05-22] MEDS: AMOXICILLIN 500 MG CAP PO SCH (05:29)
[2018-05-22 06:09] LABS: HEMATOCRIT 25.1 % (36.0-47.0); HEMOGLOBIN 8.7 g/dl (12.0-15.5); MEAN CORPUSCULAR HEMOGLOBIN 32.8 pg (27.0-33.0); MEAN CORPUSCULAR HGB CONC 34.7 g/dl (32.0-36.5); MEAN CORPUSCULAR VOLUME 94.7 fl (80.0-96.0); PLATELET COUNT, AUTOMATED 168 10^3/uL (150-450); RED BLOOD COUNT 2.65 10^6/uL (4.00-5.40); WHITE BLOOD COUNT 4.9 10^3/uL (4.0-10.0)
[2018-05-22 06:39] LABS: BLOOD UREA NITROGEN 8 MG/DL (7-18); CALCIUM LEVEL 8.4 MG/DL (8.8-10.2); CARBON DIOXIDE LEVEL 25 MEQ/L (21-32); CHLORIDE LEVEL 99 MEQ/L (98-107); CREATININE FOR GFR 0.61 MG/DL (0.55-1.30); FREE T4 1.18 NG/DL (0.76-1.46); GLOMERULAR FILTRATION RATE > 60.0 (>32); GLUCOSE, FASTING 144 MG/DL (70-100); MAGNESIUM LEVEL 2.1 MG/DL (1.8-2.4); POTASSIUM SERUM 4.2 MEQ/L (3.5-5.1); SODIUM LEVEL 133 MEQ/L (136-145); THYROID STIMULATING HORMONE 0.933 uIU/ML (0.358-3.740)
--- NOTE | 2018-05-22 07:43 | IPN ---
DATE OF SERVICE: 05/22/2018 CHIEF COMPLAINT: Postoperative day 1 right hip TFN-A for subtrochanteric fracture. HISTORY OF PRESENT ILLNESS: This 88-year-old female came into hospital now 3 days ago with a trip and fall. She sustained a closed displaced short spiral fracture of the trochanteric region of her right hip. We booked and consented her for open reduction internal fixation (ORIF) with locked TFN-A. I performed this yesterday at approximately 7 p.m. Now I saw her today on the medicine vogt. She needs telemetry for heart monitoring. She is doing well. No complaints of pain although a little bit of difficulty moving around the hip. No concerned voiced from the nurses other than asking about if they can discontinue the Santana. On physical exam, vital signs: Temperature 97.2, blood pressure 133/78, pulse rate 72, 97% on room air, respiratory rate 15. Alert and oriented times three. She is quite pleasant and easy to interact with. She is very alert, in fact, she knew that the nurses were on shift change. Her daughters were not there this morning unfortunately but she was on the phone presumably with one of them. In terms of her right lower extremity, the thigh compartments are soft. There is no strike through on the bulky dressing. She is able to wiggle her toes and dorsiflex and plantarflex her foot. The foot is warm and well perfused. She has normal sensation throughout the foot in the superficial and deep peroneal nerves as well as saphenous, sural and tibial. LABORATORY EXAMINATION: This morning, her hemoglobin was 8.7, it dropped from 11.8. I will leave this in the hospitalists hands whether they deem it worthwhile to perform a transfusion. Her white blood cell count 4.9. Her chemistries: Sodium slightly low 133 but better than on admission of 125. Rest of electrolytes appeared normal except for her calcium which was slightly low at 8.4. ASSESSMENT AND PLAN: This 88-year-old female is now postoperative day 1 from right hip long TFN-A. I have encouraged her to mobilize weightbearing as tolerated as she is able to. We will have physical therapy (PT) and occupational therapy (OT) see and assess her. VTE prophylaxis with Xarelto 10 mg by mouth once daily for the next 35 days. I will leave the medical management of her slightly low hemoglobin in the hospitalists as well as nephrologists hands. We will discontinue the Santana. We will see how things go.
--- NOTE | 2018-05-22 08:32 | ECGEPIP ---
Stationary ECG Study [facility] - ED Test Date: 2018-05-19 Pat Name: DONN MARTINEZ Department: Room: [place] [address] Gender: F Salt Manager: ISADORA : [id number] Requested By: KARY CASTRO Order Number: [id number] Reading MD: Smiley Rolon Measurements Intervals [employer] Rate: 56 P: 60 CT: 185 QRS: -19 QRSD: 82 T: -19 QT: 426 QTc: 411 Interpretive Statements SINUS BRADYCARDIA LEFT VENTRICULAR HYPERTROPHY AND ST-T CHANGE NSTTW ABNORMALITY NO PRIOR FOR COMPARISON Electronically Signed On 05-22-2018 8:32:04 EST by Smiley Rolon
[2018-05-22] MEDS: LOSARTAN 50 MG TAB PO SCH (08:51)
--- NOTE | 2018-05-22 08:58 | REP ---
Right femur: Limited study intraoperative, four views. History: Femur fracture. 4 minutes and 49 seconds of fluoroscopy is reported. Findings: Multiple fluoroscopically obtained intraprocedural spot radiographs of the right femur document fracture reduction and orthopedic hardware position. Electronically Signed by Ronan Aranda MD 05/22/2018 06:46 P
[2018-05-22] MEDS: SENOKOT S TAB PO SCH ×2 (09:00→22:12)
[2018-05-22] MEDS: MOM 30ML SUSPENSION UDC PO SCH (09:00)
[2018-05-22] MEDS: MIRALAX *UNIT DOSE* 17GM PACKET PO SCH (09:00)
[2018-05-22 09:17] LABS: FERRITIN 144 NG/ML (8-252); IRON (FE) 20 UG/DL (50-170); PERCENT SATURATION 8.2 % (13.2-45.0); TOTAL IRON BINDING CAPACITY 245 UG/DL (250-450)
[2018-05-22] MEDS ORDERED: IRON SUCROSE 100MG 5ML VIAL (J1756 PER 1MG) IV SCH (11:45)
[2018-05-22] MEDS: NITROFURANTOIN (MACROBID) 100 MG CAP PO SCH ×2 (12:48→22:11)
[2018-05-22] MEDS ORDERED: IRON SUCROSE 25 MG in NS 50 ML IV ONE (14:00)
--- NOTE | 2018-05-22 14:30 | IPNPDOC ---
Text Note Date of Service The patient was seen on 05/22/18. NOTE Subjective: Pt feels well. States her pain is very well-controlled. Denies any acute complaints. No dysuria. Objective: Vitals: (see below) General: No acute distress, laying comfortably in bed. HEENT: Moist mucous membranes. Neck: No JVD or lymphadenopathy Cardiac: RRR, No murmurs Pulm: Clear to auscultation b/l. No wheezing, rhonchi Abd: NT/ND + BS. Colostomy bag with no leak. No abdominal pain. Ext: No edema or cyanosis. Distal pulse intact. Right hip mild swelling. No bleeding. Labs (see below) Images: Echocardiogram on 05/20/18 CONCLUSIONS: 1. Normal left ventricle internal dimensions and wall thickness. Normal regional LV wall motion and wall thickening. Normal LV systolic function. Grade 1 LV diastolic dysfunction (impaired relaxation filling pattern). 2. 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 Mild aortic regurgitation. No aortic stenosis. 3. Moderate mitral annular calcification. No mitral regurgitation or mitral stenosis. 4. Otherwise normal appearing echocardiogram-Doppler findings. Assessment/Plan 1. Hip fracture status post mechanical fall status post repair. Management per orthopedics. 2. UTI with History of recurrent UTIs. On nitrofurantoin. 3. Hyponatremia- improved. Hydrochlorothiazide discontinued. Component of SIADH. Status post tolvaptan. Appreciate nephrology input. 4. Hypertension controlled. Continue valsartan. Hold atenolol given bradycardia. Hold HCTZ 5. History of diverticulitis status post colostomy. 6. Chronic anemia- with slight drop in hemoglobin post surgery. ? Dilutional aspect. We'll continue to monitor. Patient with iron deficiency anemia, on IV iron. Patient's hemoglobin continues to drift on, will transfuse PRBC. DVT prophy: Per orthopedics PT/OT VS,Fishbone, I+O VS, Fishbone, I+O Laboratory Tests 05/22/18 05:48 Red Blood Count 2.65 L, Mean Corpuscular Volume 94.7, Mean Corpuscular Hemoglobin 32.8, Mean Corpuscular Hemoglobin Concent 34.7, Red Cell Distribution Width 12.3, Calcium Level 8.4 L Vital Signs Date Time Temp Pulse Resp B/P (MAP) Pulse Ox O2 Delivery O2 Flow Rate FiO2 2/6/19 10:00 99.4 79 18 109/57 (74) 97 05/21/18 20:35 Room Air I&O- Last 24 Hours up to 6 AM 05/22/18 06:00 Intake Total 1900 ml Output Total 1350 ml Balance 550 ml ZION MILTON MD May 22, 2018 14:30
[2018-05-22] MEDS ORDERED: IRON SUCROSE 175 MG in NS 100 ML IV ONE (15:00)
[2018-05-22] MEDS: RIVAROXABAN 10 MG TAB (XARELTO) PO SCH (17:28)
[2018-05-22] MEDS: PERCOCET 5MG/325MG TAB PO PRN ×2 (17:28→23:54)
[2018-05-22] MEDS: ATENOLOL 50 MG TAB PO SCH (22:12)
[2018-05-23 06:00] VITALS: BP 110/62
[2018-05-23 06:19] LABS: HEMATOCRIT 21.6 % (36.0-47.0); HEMOGLOBIN 7.4 g/dl (12.0-15.5); MEAN CORPUSCULAR HEMOGLOBIN 33.5 pg (27.0-33.0); MEAN CORPUSCULAR HGB CONC 34.3 g/dl (32.0-36.5); MEAN CORPUSCULAR VOLUME 97.7 fl (80.0-96.0); PLATELET COUNT, AUTOMATED 162 10^3/uL (150-450); RED BLOOD COUNT 2.21 10^6/uL (4.00-5.40); WHITE BLOOD COUNT 4.4 10^3/uL (4.0-10.0)
[2018-05-23 06:41] LABS: BLOOD UREA NITROGEN 15 MG/DL (7-18); CALCIUM LEVEL 8.1 MG/DL (8.8-10.2); CARBON DIOXIDE LEVEL 27 MEQ/L (21-32); CHLORIDE LEVEL 97 MEQ/L (98-107); CREATININE FOR GFR 0.72 MG/DL (0.55-1.30); GLOMERULAR FILTRATION RATE > 60.0 (>32); GLUCOSE, FASTING 102 MG/DL (70-100); MAGNESIUM LEVEL 2.1 MG/DL (1.8-2.4); POTASSIUM SERUM 4.5 MEQ/L (3.5-5.1); SODIUM LEVEL 130 MEQ/L (136-145)
[2018-05-23] MEDS: PERCOCET 5MG/325MG TAB PO PRN ×4 (07:23→21:57)
[2018-05-23] MEDS ORDERED: CEPACOL LOZENGE PO PRN (07:30)
--- NOTE | 2018-05-23 07:31 | IPN ---
DATE OF SERVICE: 05/23/2018 CHIEF COMPLAINT: Postoperative day 2 right hip TFN-A for subtrochanteric hip fracture. HISTORY OF PRESENT ILLNESS: This is an 88-year-old female who is seen up on [place] for postoperative day 2 care for her right hip fracture. She is doing well, in minimal amount of pain but she has not really been up ambulating yet. She attributes this to pain in her hip, a little bit of swelling in the thigh. We did discontinue the Santana yesterday but she has not urinated yet. Otherwise she feels well with no chest pain or shortness of breath. She has been using her incentive spirometer. Apparently her daughters did come to visit some time yesterday but I have yet to see them on the vogt postoperatively yet. PHYSICAL EXAMINATION: Vital signs this morning: Temperature 97.3, blood pressure 110/62, pulse rate 56, 96% on room air, respiratory rate 18. She is alert and oriented times three. She is pleasant as usual. She is lying in bed. No Santana in situ. In terms of her right lower extremity, the bulky dressing is still in place. The thigh and calf compartments are both soft. Minimal ecchymosis. A little bit of swelling to the thigh tracking down the leg. She has normal sensation throughout the foot. She is able to wiggle her toes, dorsiflex and plantarflex her foot. Feet are warm and well perfused with good pedal pulses. LABORATORY: Examination this morning revealed hemoglobin of 7.4. White blood cell count 4.4. Chemistries revealed slightly low sodium at 130 and chloride 97. ASSESSMENT AND PLAN: This 88-year-old female we encouraged to mobilize. She really needs to get up and start moving around a little bit. We also encouraged her to increase her oral intake of fluids to hopefully stimulate her to urinate. For VTE prophylaxis, she is on Xarelto 10 mg by mouth once daily without concern of bleeding into the thigh excessively. We will change the bulky dressing to a smaller dressing on today's date. I will leave the management of her low hemoglobin again in the hospitalists capable hands.
[2018-05-23] MEDS: MOM 30ML SUSPENSION UDC PO SCH (07:59)
[2018-05-23] MEDS: MIRALAX *UNIT DOSE* 17GM PACKET PO SCH (08:00)
[2018-05-23] MEDS: NITROFURANTOIN (MACROBID) 100 MG CAP PO SCH ×2 (08:00→21:58)
[2018-05-23] MEDS: SENOKOT S TAB PO SCH ×2 (08:00→21:58)
[2018-05-23] MEDS ORDERED: LOSARTAN 25 MG TAB PO SCH (09:00)
--- NOTE | 2018-05-23 09:35 | IPN ---
DATE OF SERVICE: 05/22/2018 SUBJECTIVE: Patient was seen and examined at the bedside today, morning. She got right hip surgery done yesterday. She is afebrile and hemodynamically stable. Her sodium is stable at 133 today. She reports pain at the surgical site. Otherwise, she denies any active complaints. OBJECTIVE: VITAL SIGNS: Temperature is 98 degrees Fahrenheit, blood pressure 100/54, pulse is 92, respiratory rate of 18, saturating 95% on room air. INTAKE AND OUTPUT: Urine output recorded as 2 liters yesterday, 125 mL so far today since overnight. PHYSICAL EXAMINATION: GENERAL: Patient is awake, alert, oriented times three, laying in bed, in no apparent distress. HEAD AND NECK EXAM: Extraocular muscles intact. Pupils equally round and reactive to light. Mucous membranes are moist. Neck is supple. There is no jugular venous distention (JVD). CARDIOVASCULAR: S1, S2, regular rate. No murmur, rub or gallop. RESPIRATORY: Chest is clear to auscultation bilaterally. Bilateral equal air entry. No rales or rhonchi. ABDOMEN: Soft. Positive bowel sounds. Right lower quadrant colostomy was noted. MUSCULOSKELETAL: Right leg has a dressing at the surgical site. CENTRAL NERVOUS SYSTEM (ON AWAKE COUNSELOR): No focal deficit. Power is 5/5 in bilateral upper extremities. LAB REVIEW: CBC showed a WBC of 4.9, hemoglobin 8.7, platelets are 168. BMP showed sodium 133, potassium 4.2, chloride 99, bicarbonate 25, BUN 8, creatinine 0.61, calcium 8.4. Iron is 20. Transferrin saturation is 8.2. Ferritin is 144. Microbiology: Urine culture grew Escherichia (E) coli. CURRENT INPATIENT MEDICATIONS: The patient's medications were all reviewed by me. Patient was getting amoxicillin for urinary tract infection (UTI). E coli is resistant to penicillin. I have started her on nitrofurantoin 100 mg by mouth twice a day. ASSESSMENT AND PLAN: 1. Hyponatremia. Patient was given a dose of tolvaptan on first day. Thiazide has been stopped. Her sodium level is stable at 133. Continue free water restriction at 1800 mL per day. 2. Iron deficiency anemia. Patient likely lost some blood during the surgery. I am going to give her Venofer 200 mg IV every 48 hours times three doses. 3. Hypertension. Blood pressure is optimized. Continue atenolol and losartan with holding parameter. 4. Urinary tract infection. Patient has been started on nitrofurantoin 100 mg twice a day. Amoxicillin has been stopped because E coli is resistant to ampicillin. Patient has multiple antibiotic allergies, including cephalosporin, clindamycin and quinolones and sulfa drugs.
[2018-05-23] MEDS ORDERED: NS 250 ML IV ONE (12:30)
[2018-05-23 14:00] VITALS: BP 117/50
--- NOTE | 2018-05-23 16:22 | IPNPDOC ---
Text Note Date of Service The patient was seen on 05/23/18. NOTE Subjective: Patient denies any complaints at this time. And notes that she has been attempting to participate with physical therapy, however states she would like to take her time while working with them. Denies any nausea or vomiting. No abdominal pain. Objective: General: No acute distress, laying comfortably in bed. HEENT: Moist mucous membranes. Neck: No JVD or lymphadenopathy Cardiac: RRR, No murmurs Pulm: Clear to auscultation b/l. No wheezing, rhonchi Abd: NT/ND + BS. Colostomy bag with no leak. No abdominal pain. Ext: No edema or cyanosis. Distal pulse intact. Right hip mild swelling. No bleeding. Labs (see below) Images: Echocardiogram on 05/20/18 CONCLUSIONS: 1. Normal left ventricle internal dimensions and wall thickness. Normal regional LV wall motion and wall thickening. Normal LV systolic function. Grade 1 LV diastolic dysfunction (impaired relaxation filling pattern). 2. 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 Mild aortic regurgitation. No aortic stenosis. 3. Moderate mitral annular calcification. No mitral regurgitation or mitral stenosis. 4. Otherwise normal appearing echocardiogram-Doppler findings. Assessment/Plan 1. Hip fracture status post mechanical fall status post repair. Management per orthopedics. 2. UTI with History of recurrent UTIs. On nitrofurantoin. 3. Hyponatremia- improved. Hydrochlorothiazide discontinued. Component of SIADH. Status post tolvaptan. Appreciate nephrology input. 4. Hypertension controlled. Continue valsartan. Hold atenolol given bradycardia. Hold HCTZ 5. History of diverticulitis status post colostomy. 6. Acute on chronic Chronic anemia- with drop in hemoglobin post surgery. ? Dilutional aspect. We'll continue to monitor. Patient with iron deficiency anemia, on IV iron. Being transfused 1 unit PRBC. Hemodynamically stable. DVT prophy: Per orthopedics PT/OT VS,Diana, I+O VS, Diana, I+O Laboratory Tests 05/23/18 05:58 Red Blood Count 2.21 L, Mean Corpuscular Volume 97.7 H, Mean Corpuscular Hemoglobin 33.5 H, Mean Corpuscular Hemoglobin Concent 34.3, Red Cell Distribution Width 12.7, Calcium Level 8.1 L Vital Signs Date Time Temp Pulse Resp B/P (MAP) Pulse Ox O2 Delivery O2 Flow Rate FiO2 05/23/18 15:36 18 05/23/18 14:00 97.9 55 117/50 (72) 95 05/21/18 20:35 Room Air I&O- Last 24 Hours up to 6 AM 05/23/18 06:00 Intake Total 1020 ml Balance 1020 ml ZION MILTON MD May 23, 2018 16:22
[2018-05-23] MEDS: RIVAROXABAN 10 MG TAB (XARELTO) PO SCH (18:46)
[2018-05-23 19:15] LABS: SODIUM,RANDOM URINE < 10 MEQ/L
[2018-05-23 19:34] LABS: OSMOLALITY URINE 451 MOSM/KG (500-800)
[2018-05-23 21:57] VITALS: BP 125/60
[2018-05-23] MEDS: ATENOLOL 50 MG TAB PO SCH (21:57)
[2018-05-23 22:00] VITALS: BP 125/60
--- NOTE | 2018-05-23 22:03 | IPN ---
DATE: 05/23/2018 SUBJECTIVE: Patient was seen and examined at the bedside today morning. She was sitting up in the bed. She was trying to get up with the help of physical therapy. She was still complaining of pain in the right leg. I was told by the nursing staff that patient is oliguric since overnight. Her blood pressures were also low. Bladder scan was done and there was not much urine found in the bladder scan as well. Her hemoglobin has dropped to 7.4 today and the sodium has dropped from 133 to 130 today. OBJECTIVE: VITAL SIGNS: Temperature is 97.3 degrees Fahrenheit. Blood pressure 110/62, pulse is 56, respiratory rate of 18, saturating 97% on room air. Intake and output: Urine output recorded since overnight is only 325 mL. Weight on the bed scale is unavailable. PHYSICAL EXAMINATION: GENERAL: The patient is awake, alert and oriented times three. Sitting up in the bed. Mild painful distress. HEAD/NECK: Extraocular muscles intact. Pupils equally round and reactive to light. Mucous membranes are moist. Neck is supple. There is no jugular venous distention (JVD). CARDIOVASCULAR: S1, S2, regular rate. No murmur, rub or gallop. RESPIRATORY: Chest is clear to auscultation bilaterally. Bilateral equal air entry. No rales or rhonchi. ABDOMEN: Soft. Positive bowel sounds. Nontender. No organomegaly. MUSCULOSKELETAL: Right thigh has dressing and it has swelling as well. It is tender to palpation. CENTRAL NERVOUS SYSTEM: No focal deficit. Power is 5/5 in bilateral upper extremities. LAB REVIEW: CBC showed a WBC of 4.4, hemoglobin is 7.4, platelets are 162. Urine osmolarity is 451. Urine random sodium less than 10. BMP showed sodium 130, potassium 4.5, chloride 97, bicarbonate 27, BUN 15, creatinine is 0.7. Glucose 102. Magnesium is 2.1. Pro-MBP is 187. Microbiology: Urine culture from 05/20/2018 is growing E. Coli. CURRENT INPATIENT MEDICATIONS: Patient's medications are all reviewed by me. I gave her a dose of normal saline 250 mL IV bolus times one dose. She also continues to get IV Venofer. I have stopped her losartan today morning because of soft blood pressures and oliguria. She continues to be on nitrofurantoin. ASSESSMENT AND PLAN: 1. Hyponatremia. Patient has soft blood pressures postoperatively. Serum sodium has dropped but urine sodium is less than 10. I think she is volume depleted at this point. I have given her a small bolus of 250 mL of normal saline. Continue to monitor at this point. 2. Anemia after surgery and iron deficiency. Patient is getting the Venofer, however, her hemoglobin has dropped below 8. She is going to get 1 unit of packed red blood cells (PRBC) transfusion as well. 3. Hypertension. Patient has soft blood pressure and she persistently has low sodium level. I am stopping the losartan. Continue the atenolol with holding parameters. If blood pressure goes above 140, then patient will be started on calcium channel blockers instead of angiotensin receptor alfonzo. 4. Urinary tract infection. Patient is currently on nitrofurantoin.
[2018-05-24] MEDS: PERCOCET 5MG/325MG TAB PO PRN (05:19)
[2018-05-24 06:00] VITALS: BP 122/59
[2018-05-24 07:02] LABS: HEMATOCRIT 23.9 % (36.0-47.0); HEMOGLOBIN 8.1 g/dl (12.0-15.5); MEAN CORPUSCULAR HEMOGLOBIN 32.7 pg (27.0-33.0); MEAN CORPUSCULAR HGB CONC 33.9 g/dl (32.0-36.5); MEAN CORPUSCULAR VOLUME 96.4 fl (80.0-96.0); PLATELET COUNT, AUTOMATED 158 10^3/uL (150-450); RED BLOOD COUNT 2.48 10^6/uL (4.00-5.40); WHITE BLOOD COUNT 3.8 10^3/uL (4.0-10.0)
[2018-05-24 07:31] LABS: BLOOD UREA NITROGEN 15 MG/DL (7-18); CALCIUM LEVEL 7.9 MG/DL (8.8-10.2); CARBON DIOXIDE LEVEL 25 MEQ/L (21-32); CHLORIDE LEVEL 98 MEQ/L (98-107); CREATININE FOR GFR 0.47 MG/DL (0.55-1.30); GLOMERULAR FILTRATION RATE > 60.0 (>32); GLUCOSE, FASTING 100 MG/DL (70-100); MAGNESIUM LEVEL 1.9 MG/DL (1.8-2.4); POTASSIUM SERUM 4.4 MEQ/L (3.5-5.1); SODIUM LEVEL 130 MEQ/L (136-145)
[2018-05-24 08:30] VITALS: BP 110/62
[2018-05-24] MEDS: MOM 30ML SUSPENSION UDC PO SCH (09:00)
[2018-05-24] MEDS: MIRALAX *UNIT DOSE* 17GM PACKET PO SCH (09:00)
[2018-05-24] MEDS: NITROFURANTOIN (MACROBID) 100 MG CAP PO SCH (09:20)
[2018-05-24] MEDS: SENOKOT S TAB PO SCH (09:21)
[2018-05-24] MEDS ORDERED: PEG1POW PO (11:38)
[2018-05-24] MEDS ORDERED: MACR100C43 PO (11:38)
--- NOTE | 2018-05-24 11:38 | IPN ---
DATE OF SERVICE: 05/24/2018 CHIEF COMPLAINT: Postoperative day 3, right hip TFN-A for subtrochanteric hip fracture. HISTORY OF PRESENT ILLNESS: This 88-year-old female was seen today on 5 [place], postoperative day 3, for her right hip fracture. This was a trochanteric hip fracture that I fixed with a long TFN nail. She is doing well, but definitely slow to mobilize. No chest pain or shortness of breath or other constitutional symptoms. She does not really complain about any pain. Overall, she appears to be doing well. She did have a number of questions related to Life Alert line as well as Medicare questions. PHYSICAL EXAMINATION: VITAL SIGNS: Temperature 99.0, blood pressure 122/59, pulse rate 62, 95% on room air, respiratory rate 18. She is alert and oriented times three. She converses well. Mood and affect are pleasant and positive. Inspection of her right lower extremity reveal the bulky dressing to be have been taken down and now there is a smaller dressing in place, but there is some strike through on the proximal dressing. Otherwise, thigh compartments are soft on both sides. She is able to wiggle her toes, dorsiflex and plantar flex her foot. Normal sensation throughout the feet. LABORATORY EXAMINATION: Revealed hemoglobin of 8.1, which is stabilizing. Her chemistries again revealed slightly low sodium but this appears to be stable at 130. ASSESSMENT/PLAN: This 88-year-old female who is now postoperative day 3 from the right hip subtrochanteric hip fracture with long TFN-A nailing. We encouraged to mobilize. She is weightbearing as tolerated. She is on Xarelto 10 mg by mouth once daily for VTE prophylaxis. I encouraged deep breathing. We will see how she mobilizes.
[2018-05-24] MEDS ORDERED: IRON SUCROSE 200 MG in NS 100 ML IV SCH (14:00)
--- NOTE | 2018-05-25 07:09 | IPN ---
DATE OF SERVICE: 05/24/2018 SUBJECTIVE: Patient was seen and examined at the bedside today morning. She was actually sitting up on the bedside commode and she reported that she was unable to urinate. She required a straight catheterization overnight as well. Patient is status post one unit of packed red blood cells (PRBC) transfusion yesterday. Hemoglobin has improved to 8.1. Renal function is stable and sodium is also staying stable at 130. Blood pressures are low, she is not requiring any antihypertensive medications at this point. OBJECTIVE: VITAL SIGNS: Temperature is 98.7 degrees Fahrenheit. Blood pressure 110/62, pulse is 65, respiratory rate of 18, saturating 95% on room air. Intake and output: Urine output recorded since overnight is 400 mL. Weight in the bed scale is unavailable. PHYSICAL EXAMINATION: GENERAL: The patient is awake, alert and oriented times three. Sitting up. No apparent distress. HEAD AND NECK EXAM: Extraocular muscles intact. Pupils equally round and reactive to light. Mucous membranes are moist. Neck is supple. There is no jugular venous distention (JVD). CARDIOVASCULAR: S1, S2, regular rate. No murmur, rub or gallop. RESPIRATORY: Chest is clear to auscultation bilaterally. Bilateral equal air entry. No rales or rhonchi. ABDOMEN: Soft. Positive bowel sounds. Nontender. No organomegaly. MUSCULOSKELETAL: Right thigh has swelling and dressing at the surgical site. CENTRAL NERVOUS SYSTEM: No focal deficit. Power is 5/5 in bilateral upper extremities. LAB REVIEW: CBC showed a WBC of 3.8, hemoglobin is 8.1, platelets are 151. BMP showed sodium 130, potassium 4.4, chloride 98, bicarbonate 25, BUN 15, creatinine is 0.4. Magnesium is 1.9. CURRENT INPATIENT MEDICATIONS: Patient's medications are all reviewed by me. She also continues to be on IV Venofer every 48 hours and she continues to be on nitrofurantoin for urinary tract infection (UTI). No other change in medications today as compared with yesterday. ASSESSMENT AND PLAN: 1. Hyponatremia. Patient's sodium has been staying stable at 130. Losartan was also stopped yesterday. Continue a free moderate restriction less then 1.5 liter daily. 2. Anemia after surgery and iron deficiency. Patient is getting Venofer infusions. She also got one unit of packed red blood cells (PRBC) transfusion yesterday. 3. History of hypertension. Patient is hypotensive postoperative. She continues to be on atenolol 50 mg daily. Losartan has been stopped because of soft blood pressures and hyponatremia. 4. Urinary tract infection. Patient is currently getting nitrofurantoin. 5. Status post right hip nailing. Patient needs physical therapy. He is pending transfer to rehabilitation. Patient's renal function is stable. Sodium has been fluctuating about 130 and above. Hemoglobin is nicely improving. Nephrology service is going to sign off at this moment.
--- NOTE | 2018-05-25 15:40 | DS.PDOC ---
Discharge Summary General Date of Admission May 19, 2018 at 23:04 Date of Discharge 05/24/18 Attending Physician: ZION MILTON MD Specialist/Consultants Involve: GABO GALLAGHER MD Specialist/Consultants Involve Dr. Lyon Discharge Summary PROCEDURES PERFORMED DURING STAY: Hip fracture status post repair ADMITTING/DISCHARGE DIAGNOSES: 1. Hip fracture status post repair 2. UTI 3. Hyponatremia improved 4. History of hypertension 5. History of diverticulitis 6. Acute on chronic anemia postop status post 1 unit prbc COMPLICATIONS/CHIEF COMPLAINT: Hip pain HISTORY OF PRESENT ILLNESS/HOSPITAL COURSE: This is a 88-year-old female past medical history hypertension, diverticulitis, recurrent UTIs presents with mechanical fall subsequent hip fracture. Orthopedics is been consulted and the patient did undergo a hip repair. The patient was also noted to have a UTI with a history of recurrent UTIs. She has been started on nitrofurantoin given her multiple antibiotic allergies. On admission, patient was also noted to be hyponatremic likely a component of hydrochlorothiazide as well as SIADH. Patient was given 1 dose of tolvaptan by nephrology, with improvement of her sodium level. Patient also had acute on chronic anemia postop and received 1 unit PRBC with further stabilization of her hemoglobin. She is currently hemodynamics stable. Over the course of hospital physician, patient tolerated therapy well, has progressed with physical therapy, and will be discharged to [facility]. DISCHARGE MEDICATIONS: Please see below. ALLERGIES: Please see below. PHYSICAL EXAMINATION ON DISCHARGE: General: No acute distress, laying comfortably in bed. HEENT: Moist mucous membranes. Neck: No JVD or lymphadenopathy Cardiac: RRR, No murmurs Pulm: Clear to auscultation b/l. No wheezing, rhonchi Abd: NT/ND + BS. Colostomy bag with no leak. No abdominal pain. Ext: No edema or cyanosis. Distal pulse intact. Right hip mild swelling. No bleeding. LABORATORY DATA: Please see below. PROGNOSIS: Fair ACTIVITY: As tolerated. DIET: Low-sodium diet DISCHARGE PLAN/DISPOSITION: [facility] DISCHARGE INSTRUCTIONS: 1. Follow-up with PCP in 1 week. Follow-up with orthopedics as indicated. Return to the ED if symptoms worsen. DISCHARGE CONDITION: Stable. TIME SPENT ON DISCHARGE: Greater than 30 minutes. Vital Signs/I&Os Vital Signs Date Time Temp Pulse Resp B/P (MAP) Pulse Ox O2 Delivery O2 Flow Rate FiO2 05/24/18 08:30 98.7 60 18 110/62 (78) 95 05/21/18 20:35 Room Air I&O- Last 24 Hours up to 6 AM 05/25/18 06:00 Intake Total 360 ml Output Total 400 ml Balance -40 ml Laboratory Data Labs 24H Laboratory Tests 2 05/25/18 09:12: Lab Scanned Report Transfusion Record Microbiology Microbiology 05/21/18 Blood Culture - Preliminary, Resulted No Growth after 72 hours. All specime... 05/21/18 Blood Culture - Preliminary, Resulted No Growth after 72 hours. All specime... 05/20/18 Urine Culture - Final, Complete Escherichia Coli Discharge Medications Scheduled Atenolol (Atenolol) 50 Mg Tab, 50 MG PO QHS, (Reported) Nitrofurantoin Monohydrate Mac (Macrobid) 100 Mg Cap, 100 MG PO BID Polyethylene Glycol (Peg 3350) 1 Pkt Pow, 1 PKT PO DAILY Allergies Coded Allergies: Cephalosporins (Verified Allergy, Unknown, 07/22/12) Clindamycin (Verified Allergy, Unknown, 07/22/12) Quinolones (Verified Allergy, Unknown, 07/22/12) Sulfa Drugs (Verified Allergy, Unknown, 07/22/12) Sulfa Drugs Cross Reactors (Verified Allergy, Unknown, 07/22/12) Tetracycline (Verified Allergy, Unknown, 07/22/12) ZION MILTON MD May 25, 2018 15:40
== END 2018-05-24 12:50 | DRG 481 ==
LOC: M ED 21:04 → M ED INP 23:04 → M MSPAV 05-20 14:29 → M MS5PR 05-22 16:00
PROVIDERS: ADMIT Internal Medicine; ATTEND Internal Medicine
PROC: 0QS604Z Reposition Right Upper Femur with Internal Fixation Device, Open Approach (ICD-10-PCS; principal; 2018-05-21 15:00)
PROC: 30233N1 Transfusion of Nonautologous Red Blood Cells into Peripheral Vein, Percutaneous Approach (ICD-10-PCS; 2018-05-23)
DX: S72.21XA Displaced subtrochanteric fracture of right femur, initial encounter for closed fracture (principal); E22.2 Syndrome of inappropriate secretion of antidiuretic hormone; N39.0 Urinary tract infection, site not specified; I10 Essential (primary) hypertension; E83.42 Hypomagnesemia; B96.20 Unspecified Escherichia coli [E. coli] as the cause of diseases classified elsewhere; D50.0 Iron deficiency anemia secondary to blood loss (chronic); Z90.710 Acquired absence of both cervix and uterus; Z79.899 Other long term (current) drug therapy; Z88.1 Allergy status to other antibiotic agents; Z88.2 Allergy status to sulfonamides; Z93.3 Colostomy status; W18.09XA Striking against other object with subsequent fall, initial encounter; Y92.009 Unspecified place in unspecified non-institutional (private) residence as the place of occurrence of the external cause; Z87.440 Personal history of urinary (tract) infections

== ENCOUNTER → 2018-05-31 | Outpatient (REF) ==
[~2018-05-31] MED LIST changes: +ATEN50TA2 PO; +LOSA50TA5 PO; +MACR100C43 PO; +PEG1POW PO
[2018-05-31 12:17] LABS: HEMATOCRIT 32.3 % (36.0-47.0); HEMOGLOBIN 10.6 g/dl (12.0-15.5); MEAN CORPUSCULAR HEMOGLOBIN 32.6 pg (27.0-33.0); MEAN CORPUSCULAR HGB CONC 32.8 g/dl (32.0-36.5); MEAN CORPUSCULAR VOLUME 99.4 fl (80.0-96.0); PLATELET COUNT, AUTOMATED 331 10^3/uL (150-450); RED BLOOD COUNT 3.25 10^6/uL (4.00-5.40); WHITE BLOOD COUNT 7.6 10^3/uL (4.0-10.0)
[2018-05-31 13:00] LABS: BLOOD UREA NITROGEN 15 MG/DL (7-18); CALCIUM LEVEL 9.2 MG/DL (8.8-10.2); CARBON DIOXIDE LEVEL 25 MEQ/L (21-32); CHLORIDE LEVEL 95 MEQ/L (98-107); CREATININE FOR GFR 0.45 MG/DL (0.55-1.30); GLOMERULAR FILTRATION RATE > 60.0 (>32); GLUCOSE, FASTING 117 MG/DL (70-100); POTASSIUM SERUM 3.9 MEQ/L (3.5-5.1); SODIUM LEVEL 134 MEQ/L (136-145)
== END ==
LOC: SKLAB5 10:45
PROVIDERS: ATTEND Family Medicine
DX: Z47.89 Encounter for other orthopedic aftercare (principal); Z98.890 Other specified postprocedural states; I10 Essential (primary) hypertension; Z79.899 Other long term (current) drug therapy

== ENCOUNTER → 2018-06-06 | Outpatient (REF) ==
[2018-06-06 09:29] LABS: HEMATOCRIT 31.2 % (36.0-47.0); HEMOGLOBIN 10.2 g/dl (12.0-15.5); MEAN CORPUSCULAR HEMOGLOBIN 32.1 pg (27.0-33.0); MEAN CORPUSCULAR HGB CONC 32.7 g/dl (32.0-36.5); MEAN CORPUSCULAR VOLUME 98.1 fl (80.0-96.0); PLATELET COUNT, AUTOMATED 299 10^3/uL (150-450); RED BLOOD COUNT 3.18 10^6/uL (4.00-5.40); WHITE BLOOD COUNT 4.4 10^3/uL (4.0-10.0)
[2018-06-06 09:42] LABS: BLOOD UREA NITROGEN 18 MG/DL (7-18); CALCIUM LEVEL 8.8 MG/DL (8.8-10.2); CARBON DIOXIDE LEVEL 25 MEQ/L (21-32); CHLORIDE LEVEL 100 MEQ/L (98-107); CREATININE FOR GFR 0.38 MG/DL (0.55-1.30); GLOMERULAR FILTRATION RATE > 60.0 (>32); GLUCOSE, FASTING 97 MG/DL (70-100); POTASSIUM SERUM 3.8 MEQ/L (3.5-5.1); SODIUM LEVEL 136 MEQ/L (136-145)
== END ==
LOC: SKLAB5 08:19
PROVIDERS: ATTEND Family Medicine
DX: D64.9 Anemia, unspecified (principal); I10 Essential (primary) hypertension; Z98.890 Other specified postprocedural states; Z47.89 Encounter for other orthopedic aftercare; Z79.899 Other long term (current) drug therapy

== ENCOUNTER → 2018-06-10 | Outpatient (REF) | payer MEDICARE ==
[2018-06-10 20:24] LABS: APPEARANCE, URINE MANUAL TURBID (CLEAR); COLOR, URINE MANUAL DK YELLOW (YELLOW); SPECIFIC GRAVITY,URINE MANUAL 1.021 (1.002-1.035)
[2018-06-10 20:25] LABS: BILIRUBIN, URINE MANUAL NEGATIVE (NEGATIVE); BLOOD URINE MANUAL POSITIVE (NEGATIVE); GLUCOSE, URINE (UA) MANUAL NEGATIVE (NEGATIVE); KETONE, URINE MANUAL NEGATIVE (NEGATIVE); LEUKOCYTE ESTERASE, URINE MAN POSITIVE (NEGATIVE); NITRITE, URINE MANUAL TRACE (NEGATIVE); PH,URINE MAN 8.5 UNITS (5.0 - 7.0); PROTEIN, URINE MANUAL 2+ mg/dL (NEGATIVE); UROBILINOGEN, URINE MANUAL NORMAL (NORMAL)
[2018-06-10 20:34] LABS: WBC, URINE TNTC /hpf (0-3)
[2018-06-10 20:38] LABS: BACTERIA, URINE LARGE AMOUNT; MUCUS, URINE MOD AMOUNT (NEGATIVE); SQUAMOUS EPITHELIAL CELL URINE NONE SEEN /hpf (SMALL AMT); TRANSITIONAL EPI CELLS, URINE SMALL AMOUNT /hpf; TRIPLE PHOSPHATE CRYSTAL,URINE MOD AMOUNT /hpf
[2018-06-10 20:39] LABS: HYALINE CAST, URINE NONE SEEN /lpf (0-1)
== END ==
LOC: SKLAB5 19:28
PROVIDERS: ATTEND Family Medicine
DX: R39.89 Other symptoms and signs involving the genitourinary system (principal)

== ENCOUNTER → 2018-06-13 | Outpatient (REF) ==
[2018-06-13 08:19] LABS: HEMATOCRIT 27.2 % (36.0-47.0); HEMOGLOBIN 8.9 g/dl (12.0-15.5); MEAN CORPUSCULAR HEMOGLOBIN 31.8 pg (27.0-33.0); MEAN CORPUSCULAR HGB CONC 32.7 g/dl (32.0-36.5); MEAN CORPUSCULAR VOLUME 97.1 fl (80.0-96.0); PLATELET COUNT, AUTOMATED 198 10^3/uL (150-450); WHITE BLOOD COUNT 2.4 10^3/uL (4.0-10.0)
[2018-06-13 08:49] LABS: BLOOD UREA NITROGEN 11 MG/DL (7-18); CALCIUM LEVEL 8.4 MG/DL (8.8-10.2); CARBON DIOXIDE LEVEL 27 MEQ/L (21-32); CHLORIDE LEVEL 100 MEQ/L (98-107); CREATININE FOR GFR 0.38 MG/DL (0.55-1.30); GLOMERULAR FILTRATION RATE > 60.0 (>32); GLUCOSE, FASTING 86 MG/DL (70-100); POTASSIUM SERUM 3.4 MEQ/L (3.5-5.1); SODIUM LEVEL 134 MEQ/L (136-145)
== END ==
LOC: SKLAB5 08:25
PROVIDERS: ATTEND Family Medicine
DX: Z47.89 Encounter for other orthopedic aftercare (principal); Z98.890 Other specified postprocedural states; Z79.899 Other long term (current) drug therapy

== ENCOUNTER → 2018-06-20 | Outpatient (REF) ==
[2018-06-20 10:19] LABS: HEMATOCRIT 34.9 % (36.0-47.0); HEMOGLOBIN 11.1 g/dl (12.0-15.5); MEAN CORPUSCULAR HEMOGLOBIN 30.7 pg (27.0-33.0); MEAN CORPUSCULAR HGB CONC 31.8 g/dl (32.0-36.5); MEAN CORPUSCULAR VOLUME 96.4 fl (80.0-96.0); PLATELET COUNT, AUTOMATED 215 10^3/uL (150-450); RED BLOOD COUNT 3.62 10^6/uL (4.00-5.40); WHITE BLOOD COUNT 3.3 10^3/uL (4.0-10.0)
[2018-06-20 10:51] LABS: BLOOD UREA NITROGEN 6 MG/DL (7-18); CALCIUM LEVEL 9.1 MG/DL (8.8-10.2); CARBON DIOXIDE LEVEL 28 MEQ/L (21-32); CHLORIDE LEVEL 99 MEQ/L (98-107); CREATININE FOR GFR 0.57 MG/DL (0.55-1.30); GLOMERULAR FILTRATION RATE > 60.0 (>32); GLUCOSE, FASTING 84 MG/DL (70-100); POTASSIUM SERUM 3.2 MEQ/L (3.5-5.1); SODIUM LEVEL 134 MEQ/L (136-145)
== END ==
LOC: SKLAB5 07:52
PROVIDERS: ATTEND Family Medicine
DX: Z47.89 Encounter for other orthopedic aftercare (principal); Z98.890 Other specified postprocedural states; Z79.899 Other long term (current) drug therapy

== ENCOUNTER → 2018-06-26 | Outpatient (REF) | payer MEDICARE ==
[2018-06-26 11:03] LABS: BLOOD UREA NITROGEN 7 MG/DL (7-18); CALCIUM LEVEL 8.7 MG/DL (8.8-10.2); CARBON DIOXIDE LEVEL 30 MEQ/L (21-32); CHLORIDE LEVEL 100 MEQ/L (98-107); GLOMERULAR FILTRATION RATE > 60.0 (>32); GLUCOSE, FASTING 95 MG/DL (70-100); POTASSIUM SERUM 3.8 MEQ/L (3.5-5.1); SODIUM LEVEL 135 MEQ/L (136-145)
== END ==
LOC: SKLAB5 09:46
PROVIDERS: ATTEND Family Medicine
DX: I50.9 Heart failure, unspecified (principal)

== ENCOUNTER 2019-01-03 19:03 | Inpatient (IN) | payer MEDICARE ==
[~2019-01-03] VITALS: Ht 152.4 cm; Wt 54.5 kg
[2019-01-03] MEDS ORDERED: NORCO, ANEXSIA 5/325MG TABLET (HYDROcodone/ACETAMINOPHEN) PO ONE (20:00)
[2019-01-03 21:59] LABS: BASO % 0.4 % (0.0-1.0); EOS % 0.3 % (0.0-3.0); HEMATOCRIT 32.4 % (36.0-47.0); HEMOGLOBIN 10.9 g/dl (12.0-15.5); LYMPH # 1.7 10^3/uL (1.5-5.0); LYMPH % 15.5 % (24.0-44.0); MEAN CORPUSCULAR HEMOGLOBIN 31.9 pg (27.0-33.0); MEAN CORPUSCULAR HGB CONC 33.6 g/dl (32.0-36.5); MEAN CORPUSCULAR VOLUME 94.7 fl (80.0-96.0); MONO % 9.3 % (0.0-5.0); NEUTROPHILS # 7.9 10^3/uL (1.5-8.5); PLATELET COUNT, AUTOMATED 187 10^3/uL (150-450); RED BLOOD COUNT 3.42 10^6/uL (4.00-5.40); WHITE BLOOD COUNT 10.7 10^3/uL (4.0-10.0)
[2019-01-03] MEDS ORDERED: ONDANSETRON 4MG/2ML VIAL (J2405) IV ONE (22:00)
--- NOTE | 2019-01-03 22:27 | REPVR ---
PROCEDURE INFORMATION: Exam: CT Head Without Contrast Exam date and time: 01/03/2019 10:09 PM Clinical history: 88 years old, female; Syncope and collapse TECHNIQUE: Imaging protocol: Computed tomography of the head without contrast. Radiation optimization: All CT scans at this facility use at least one of these dose optimization techniques: automated exposure control; mA and/or kV adjustment per patient size (includes targeted exams where dose is matched to clinical indication); or iterative reconstruction. COMPARISON: No relevant prior studies available. FINDINGS: Brain: Patchy areas of hypoattenuation in the periventricular and subcortical white matter, consistent with chronic small vessel ischemic disease. No CT evidence of acute intracranial hemorrhage or acute territorial infarction. No significant mass effect or midline shift. Basal cisterns patent. Ventricles: Prominence of the cortical sulci, cisterns and ventricular system, consistent with cerebral and cerebellar volume loss. Bones/joints: No acute osseous abnormality. Sinuses: Small right sphenoid sinus polyp versus mucus retention cyst. Mastoid air cells: Grossly unremarkable. Soft tissues: Grossly unremarkable. Vasculature: Calcific atherosclerotic disease in the cavernous internal carotid arteries. IMPRESSION: 1. No CT evidence of acute intracranial pathology. 2. Additional findings, as above. Electronically signed by: Goran Millan On 01/03/2019 22:26:51 PM
--- NOTE | 2019-01-03 22:36 | REPVR ---
PROCEDURE INFORMATION: Exam: CT Cervical Spine Without Contrast Exam date and time: 01/03/2019 10:09 PM Clinical history: 88 years old, female; Other: Syncope TECHNIQUE: Imaging protocol: Computed tomography images of the cervical spine without contrast. Axial, coronal and sagittal reformatted images were created and reviewed. Radiation optimization: All CT scans at this facility use at least one of these dose optimization techniques: automated exposure control; mA and/or kV adjustment per patient size (includes targeted exams where dose is matched to clinical indication); or iterative reconstruction. COMPARISON: RF Esophagram Barium Swallow 03/08/2016 10:09 AM FINDINGS: Vertebrae: Osteopenia. Mild exaggeration of the normal cervical lordosis. Mild anterolisthesis of C5 on C6, C6 on C7 and C7 on T1. Alignment otherwise anatomic. Levoscoliosis. No CT evidence of acute fracture, dislocation or subluxation. Vertebral body heights maintained. Discs/Spinal canal/Neural foramina: Moderate multilevel spondylosis. No significant spinal canal or neural foraminal stenosis. Soft tissues: Grossly unremarkable. Lungs: Biapical pleural thickening. IMPRESSION: 1. No CT evidence of acute cervical spine traumatic injury. 2. Additional findings, as above. Electronically signed by: Goran Millan On 01/03/2019 22:35:48 PM
[2019-01-03 22:37] LABS: BLOOD UREA NITROGEN 10 MG/DL (7-18); CALCIUM LEVEL 9.1 MG/DL (8.8-10.2); CARBON DIOXIDE LEVEL 24 MEQ/L (21-32); CHLORIDE LEVEL 93 MEQ/L (98-107); CREATININE FOR GFR 0.56 MG/DL (0.55-1.30); GLOMERULAR FILTRATION RATE > 60.0 (>32); GLUCOSE, FASTING 153 MG/DL (70-100); POTASSIUM SERUM 4.1 MEQ/L (3.5-5.1); SODIUM LEVEL 126 MEQ/L (136-145)
[2019-01-03 22:38] LABS: CK-MB VALUE MASS 1.8 NG/ML (<3.6); CPK CREATINE PHOSPHOKINASE 73 U/L (26-192); MB/CK RELATIVE INDEX 2.47 (< OR =4); TROPONIN I 0.03 NG/ML (< 0.10)
[2019-01-03] MEDS ORDERED: CALC500C16 PO (23:25)
[2019-01-03] MEDS ORDERED: CVS1CHW58 PO (23:25)
[2019-01-03] MEDS ORDERED: [UNRECOGNIZED DRUG - CODE] PO (23:25)
[2019-01-03] MEDS ORDERED: [UNRECOGNIZED DRUG - CODE] PO (23:25)
[2019-01-03] MEDS ORDERED: PRES10CA2 PO (23:25)
[2019-01-03] MEDS ORDERED: EYEDRO5 OU (23:25)
[2019-01-03 23:43] LABS: FREE T4 1.21 NG/DL (0.76-1.46)
--- NOTE | 2019-01-04 00:14 | HPEPDOC ---
[facility] Medical History & Physical Date of Admission Jan 03, 2019 Date of Service: Jan 03, 2019 History and Physical CHIEF COMPLAINT: [FALL] HISTORY OF PRESENT ILLNESS: This is an 88yo female with pmhx hx listed below who presented to the ed after a fall this evening. Patient said she was in her normal state of health when she tripped and fell on the rug. She had 1-2 glasses of wine earlier today, but said she drinks this amount everyday without any issue. She said has been eating well without any problem, but has removed salt from her diet. She also noticed intermittent watery stool in her colostomy bag, but also said that she drinks a lot water. She denied n/v/abd pain, chest pain and sob . Past history includes hypertension, colostomy for diverticulitis She is allergic to CLINDAMYCIN, TETRACYCLINE, CEPHALOSPORINS, SULFA ANTIBIOTICS and QUINOLONES. FAMILY HISTORY: No history of heart problems. She had a daughter who had Down syndrome and her sister has htn SOCIAL HISTORY: Nonsmoker, but drinks 1-2 glasses of wine daily. She has three living daughters. Her community physician is Dr. Juan Jose Rust. ROS - all 10 point review of system is negative except for whats listed in HPI Physical exam Gen: NAD, healthy appearing , HEENT: normocephalic, atraumatic, no discharge from ears or nose, no oropharyngeal erythema or exudate, neck is supple, no lymphadenopathy, trachea midline CVS: RRR, normal S1n S2, no murmur, rubs, or gallops, no edema, no jvd Resp: LCTAB, no rhonchi, wheezes or crackles Abd : soft, + tenderness on left , normal bowel sounds, no rebound tenderness or guarding, colostomy with watery stool MSK: no swelling, full range of motion and normal strength except right leg due to previous fracture Neuro: AOAx3, no confusion, no focal deficit Psych: normal mood and affect, good judgment Assessment and plan Fall due to hyponatremia possibly due to po salt intake - mechanical fall per patient -ivf - ns - gentle hydration -ct brain negative, no fracture on images - sinus bradycardia on ekg 56bpm -f/u gi panel -1.5 L/day of free water restriction -tele monitor -bmp q8h -f/u urine electrolytes and osm (serum and urine) -official report of hip xray pending, but no fracture noted -f/u echo -f/u vitamin d and b12 level HIGH TSH - f/u free t4 HTN - low normal bp -hold meds for now etoh daily -mtv, folic acid thiamine dvt ppx dnr/dni Vital Signs Vital Signs Date Time Temp Pulse Resp B/P (MAP) Pulse Ox O2 Delivery O2 Flow Rate FiO2 01/03/19 23:03 62 18 95 Room Air 01/03/19 23:00 102/54 (70) 01/03/19 19:13 98.0 Laboratory Data Labs 24H Laboratory Tests 2 01/03/19 21:50: Immature Granulocyte % (Auto) 0.5, White Blood Count 10.7H, Red Blood Count 3.42L, Hemoglobin 10.9L, Hematocrit 32.4L, Mean Corpuscular Volume 94.7, Mean Corpuscular Hemoglobin 31.9, Mean Corpuscular Hemoglobin Concent 33.6, Red Cell Distribution Width 13.5, Platelet Count 187, Neutrophils (%) (Auto) 74.0H, Lymphocytes (%) (Auto) 15.5L, Monocytes (%) (Auto) 9.3H, Eosinophils (%) (Auto) 0.3, Basophils (%) (Auto) 0.4, Neutrophils # (Auto) 7.9, Lymphocytes # (Auto) 1.7, Monocytes # (Auto) 1.0H, Eosinophils # (Auto) 0.0, Basophils # (Auto) 0.0, Nucleated Red Blood Cells % (auto) 0.0, Anion Gap 9, Glomerular Filtration Rate > 60.0, Blood Urea Nitrogen 10, Creatinine 0.56, Sodium Level 126L, Potassium Level 4.1, Chloride Level 93L, Carbon Dioxide Level 24, Calcium Level 9.1, Total Creatine Kinase 73, Creatine Kinase MB 1.8, Creatine Kinase MB Relative Index 2.47, Troponin I 0.03, Thyroid Stimulating Hormone (TSH) 6.870H 01/03/19 21:52: POC Glucose (Misc Panel) 162H, POC Sodium (Misc Panel) 124L, POC Potassium (Misc Panel) 3.8, POC Chloride (Misc Panel) 91L, POC Total CO2 (Misc Panel) 24.0, POC Blood Urea Nitrogen (Misc Panel 9, POC Ionized Calcium (Misc Panel) 4.7, POC Creatinine (Misc Panel) 0.5L, POC Hematocrit (Misc Panel) 35.0L CBC/BMP Laboratory Tests 01/03/19 21:50 Red Blood Count 3.42 L, Mean Corpuscular Volume 94.7, Mean Corpuscular Hemoglobin 31.9, Mean Corpuscular Hemoglobin Concent 33.6, Red Cell Distribution Width 13.5, Neutrophils (%) (Auto) 74.0 H, Lymphocytes (%) (Auto) 15.5 L, Monocytes (%) (Auto) 9.3 H, Eosinophils (%) (Auto) 0.3, Basophils (%) (Auto) 0.4, Neutrophils # (Auto) 7.9, Lymphocytes # (Auto) 1.7, Monocytes # (Auto) 1.0 H, Eosinophils # (Auto) 0.0, Basophils # (Auto) 0.0, Calcium Level 9.1, Total Creatine Kinase 73 Home Medications Scheduled Atenolol (Atenolol) 50 Mg Tab, 50 MG PO QHS Bacillus Coagulans (Probiotic) 1 Each Tab.chew, 1 CHW PO BID Calcium Carbonate (Calcium) 500 Mg Tab.chew, 500 MG PO DAILY Cyanocobalamin (Vitamin B-12) (Liquid B-12) 1,000 Mcg/15 Ml Liquid, 1,000 MCG PO DAILY Vit C/E/Zn/Coppr/Lutein/Zeaxan (Preservision Areds 2 Softgel) 1 Each Capsule, 1 EACH PO DAILY PT TAKES CHEWABLE Scheduled PRN Phenylephrine/Dm/Acetaminop/GG (Severe Cold and Flu Liquid) 355 Ml Liquid, 1 DOSE PO DAILY PRN for CONGESTION Tetrahydroz/Dext 70/Peg 400/Pv (Eye Drops) 15 Ml Drops, 1 FOUZIA OU BID PRN for DRY EYES Allergies Coded Allergies: Sulfa (Sulfonamide Antibiotics) (Verified Allergy, Severe, ALTERED MENTATION; FEELS LIKE THE ROOM IS SPINNING, 01/03/19) Cephalosporins (Verified Allergy, Intermediate, 01/03/19) Quinolones (Verified Allergy, Intermediate, 01/03/19) Tetracyclines (Verified Allergy, Intermediate, 01/03/19) clindamycin (Verified Allergy, Intermediate, 01/03/19) codeine (Verified Adverse Reaction, Mild, NAUSEA; "FEELS SICK", 01/03/19) A-FIB/CHADSVASC A-FIB History Current/History of A-Fib/PAF?: No Current PO Anticoag Therapy: No Age/Risk Factor Scoring CHADSVASC: CHADSVASC Response (Comments) Value Age Risk Factor Age >/= 75 years old 2 Gender Risk Factor Female 1 Hx of CHF No 0 Hx of HTN Yes 1 Hx of Stroke/TIA/or VTE No 0 Hx of Diabetes No 0 Hx of Vascular Disease No 0 Total 4 Treatment Treatment ordered: NONE Reason Anticoagulant not given: Not indicated/[id number] JOHN WAGGONER MD Jan 03, 2019 23:14
[2019-01-04] MEDS ORDERED: NS 1,000 ML IV SCH ×2 (00:45→18:00)
[2019-01-04 02:00] VITALS: BP 109/56
[2019-01-04 02:39] LABS: OSMOLALITY SERUM 272 MOSM/KG (280-301)
[2019-01-04] MEDS ORDERED: METAL LOCK LOOP XX ONE (04:51)
[2019-01-04] MEDS: HEPARIN SOD (PORCINE) 5000 UNITS/ML VIAL SC SCH ×2 (05:30→17:43)
[2019-01-04 06:00] VITALS: BP 129/59
[2019-01-04] MEDS: SODIUM CHLORIDE 1 GM TAB PO SCH ×3 (08:00→17:43)
[2019-01-04 08:28] LABS: HEMATOCRIT 26.9 % (36.0-47.0); HEMOGLOBIN 9.1 g/dl (12.0-15.5); MEAN CORPUSCULAR HGB CONC 33.8 g/dl (32.0-36.5); MEAN CORPUSCULAR VOLUME 94.7 fl (80.0-96.0); PLATELET COUNT, AUTOMATED 143 10^3/uL (150-450); RED BLOOD COUNT 2.84 10^6/uL (4.00-5.40); WHITE BLOOD COUNT 4.8 10^3/uL (4.0-10.0)
[2019-01-04] MEDS: THIAMINE 100 MG TAB PO SCH ×2 (08:29→09:00)
[2019-01-04] MEDS: FOLIC ACID 1 MG TAB PO SCH ×2 (08:29→09:00)
[2019-01-04] MEDS: MULTIVITAMINS/MINERALS THERAP 1 TAB PO SCH ×2 (08:29→09:00)
[2019-01-04 08:39] LABS: BLOOD UREA NITROGEN 9 MG/DL (7-18); CALCIUM LEVEL 8.2 MG/DL (8.8-10.2); CARBON DIOXIDE LEVEL 27 MEQ/L (21-32); CHLORIDE LEVEL 96 MEQ/L (98-107); CREATININE FOR GFR 0.52 MG/DL (0.55-1.30); GLOMERULAR FILTRATION RATE > 60.0 (>32); GLUCOSE, FASTING 100 MG/DL (70-100); MAGNESIUM LEVEL 1.7 MG/DL (1.8-2.4); POTASSIUM SERUM 4.6 MEQ/L (3.5-5.1); SODIUM LEVEL 129 MEQ/L (136-145)
--- NOTE | 2019-01-04 08:39 | REP ---
PELVIS AND RIGHT HIP: AP view of the pelvis and AP and frogleg views of the right hip are performed and include the bulk of the femoral shaft which contains an intramedullary wanda and screws. There is advanced healing of a proximal femur fracture, with healing callus noted. Smooth fracture line is still noted indicating either fibrous union or incomplete healing. There is no acute fracture or dislocation. Multiple metallic clips overlie the upper pelvis. There are multiple phleboliths in the lower pelvis. There are mild degenerative changes of the hips. Ostomy bag overlies the right hip, somewhat limiting evaluation of the underlying right hip structures. Electronically Signed by Linden Mandel MD 01/05/2019 05:44 P
--- NOTE | 2019-01-04 09:01 | REP ---
CHEST, TWO VIEWS: Two views of the chest were performed in a portable fashion. There is mild bibasilar fibroatelectatic change. No acute infiltrate is seen. A small amount of pleural fluid or thickening is seen in the posterior costophrenic sulcus on the lateral view. There is mild left ventricular prominence. There is calcification and tortuosity of the thoracic aorta. The mediastinal silhouette is unchanged. There is mild biapical pleural thickening. There is osteopenia. Multiple compression deformities of thoracic vertebral bodies appear grossly similar to prior thoracic spine series 04/03/2017. IMPRESSION: Mild bibasilar fibroatelectatic change. Small amount of pleural fluid or thickening in the posterior costophrenic sulcus. Electronically Signed by Linden Mandel MD 01/05/2019 05:46 P
[2019-01-04 12:53] VITALS: BP 126/56
[2019-01-04 14:00] VITALS: BP 109/55
[2019-01-04 14:34] LABS: BLOOD UREA NITROGEN 9 MG/DL (7-18); CALCIUM LEVEL 8.2 MG/DL (8.8-10.2); CARBON DIOXIDE LEVEL 26 MEQ/L (21-32); CHLORIDE LEVEL 95 MEQ/L (98-107); CREATININE FOR GFR 0.47 MG/DL (0.55-1.30); GLOMERULAR FILTRATION RATE > 60.0 (>32); GLUCOSE, FASTING 95 MG/DL (70-100); SODIUM LEVEL 128 MEQ/L (136-145)
--- NOTE | 2019-01-04 15:44 | ECGEPIP ---
[facility] - ED Test Date: 2019-01-03 Pat Name: DONN MARTINEZ Department: Room: [place] [address] Gender: Female [employer]: IRIS : [id number] Requested By: SEB Mason Order Number: [id number] Reading MD: Smiley Rolon Measurements Intervals [place] Rate: 56 P: 43 MT: 174 QRS: -27 QRSD: 76 T: -17 QT: 434 QTc: 422 Interpretive Statements SINUS BRADYCARDIA BORDERLINE LEFT AXIS DEVIATION VOLTAGE CRITERIA FOR [facility] NSTTW abnormalities SIMILAR 05/19/18 Electronically Signed on 01-04-2019 15:44:21 EDT by Smiley Rolon
[2019-01-04] MEDS ORDERED: IBUPROFEN 400 MG TAB PO ONE (16:00)
[2019-01-04] MEDS ORDERED: IBUPROFEN 200 MG TAB PO PRN (16:15)
--- NOTE | 2019-01-04 17:30 | REP ---
CT of the right femur: Axial images acquired with helical scanning and a reformatted sagittal and coronal projections. Images are reconstructed with beam hardening reduction software as a consequence of the gamma nail fixation. There is gamma nail fixation of a fracture of the proximal femoral shaft fracture . Position and alignment of the fracture fragments is satisfactory, however, the fracture line is ununited. This may represent fibrous union. However, there is a nondisplaced fracture of the right pubic symphysis superior ramus that appears acute. This should be correlated with clinical point tenderness. 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 The fracture is stabilized with gamma nail fixation. No femoral head dislocation. However, there is a nondisplaced fracture of the right pubic symphysis superior ramus. May be acute. Correlate with clinical point tenderness. Electronically Signed by Linden Barnes MD 01/04/2019 05:21 P
[2019-01-04] MEDS: LANSOPRAZOLE SUSPENSION 30 MG/10 ML ORAL SYRINGE (FIRST-LANSOPRAZOLE) PO SCH (17:44)
[2019-01-04 18:00] VITALS: BP 118/57
--- NOTE | 2019-01-04 18:19 | IPN ---
DATE: 01/04/2019 SUBJECTIVE: Patient still complains of pain at the right hip. Unable to bear weight. She says she has no pain when she is resting, but when she tries to move when the bed ospina is given, she experiences 8/10 pain with radiation down the leg. She also refuses salt tablets for the hyponatremia with sodium level 126 and says "I don't want to take extra tablets." Patient is very sharp, answering questions appropriately. She is appropriate and oriented when giving her history. Otherwise denies any headaches, changes in vision. Denies urinary incontinence. She has had increase in output through her colostomy, which she says is normal for her and unchanged from previous. OBJECTIVE: PHYSICAL EXAMINATION: VITAL SIGNS: Temperature 97.3, pulse 62, respiratory rate 18, blood pressure 129/59, 94% on room 1 liter nasal cannula. GENERAL: Patient is kyphotic. She is awake, alert, oriented to herself, appropriately speaking. No use of respiratory accessory muscles. No icterus. No jaundice. Wears eyeglasses. Poor dentition. No jugular venous distention (JVD) or thyromegaly. LUNGS: Clear to auscultation. No wheezing or rales. HEART: S1, S2, sinus rhythm. ABDOMEN: Soft. Colostomy in the right lower quadrant. EXTREMITIES: No cyanosis, clubbing. Right hip: Painful, tender to touch. Limited range of motion secondary to severe pain. Right pubic ramus tenderness. HOSPITAL MEDICATIONS: Lansoprazole, ibuprofen, multivitamin, folic acid, thiamine. Patient has refused sodium chloride. Heparin subcutaneous. 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 Fracture stabilized with gamma nail fixation. No femoral head dislocation. There is a nondisplaced fracture of the right pubic symphysis/superior ramus. May be acute. Correlate with clinical point tenderness. LABORATORY DATA: White count 4.8, hemoglobin 9, hematocrit 26, platelet count 143. Sodium 128, potassium 4, chloride 95, bicarbonate 26, BUN 9, creatinine 0.47, glucose of 95. Gastrointestinal (GI) panel January 04: Negative. ASSESSMENT AND PLAN: This is an 88-year-old female, prior femoral fracture status post intramedullary wanda placement, presented to the hospital after she tripped and fell on a rug after one to two glasses of wine previously. Patient has had increased output through her colostomy bag and refuses to use salt in her diet. She was found to be hyponatremic with sodium level 126. There is right pubic ramus fracture on CT with the gamma nail fixation of the fracture of proximal femoral shaft, in satisfactory position and alignment. Hospitalist was called to admit for evaluation of hyponatremia and stabilization and pain control of the right hip pelvic pain. IMPRESSION: 1. Right pubic ramus fracture. Activity is currently bed rest. Re-evaluate by orthopedics, Dr. Trinidad. Pain management with ibuprofen, as patient does not take Tylenol. 2. Known history of dysphagia. Patient has never had dilation in the past. She has learned to take only small tablets and has often refused any other new medications. Patient has no mental status changes, headaches, seizures, or changes in vision and will continue to monitor with serial metabolic panel. Patient has refused sodium tablets. Chest x-ray shows bibasilar fibroatelectasis. No lung nodules. 3. Recent fall after tripping on the rug. Once pain is controlled and activity level is clarified, will obtain physical therapy (PT) clearance and activity to be determined by orthopedic surgery. 4. History of chronic alcohol use. The patient will be placed on Clinical [place] Withdrawal Assessment (CIWA) protocol, multivitamin tablet and folate. 5. Deep vein thrombosis (DVT) prophylaxis with heparin subcutaneous. MTDD
[2019-01-04] MEDS ORDERED: MAG SULF 1GM/100ML (MAG RUN) 1 GM in APPROPRIATE DILUENT 1 EA IV ONE (19:00)
[2019-01-04 20:05] LABS: BLOOD UREA NITROGEN 9 MG/DL (7-18); CALCIUM LEVEL 7.8 MG/DL (8.8-10.2); CARBON DIOXIDE LEVEL 25 MEQ/L (21-32); CHLORIDE LEVEL 96 MEQ/L (98-107); CREATININE FOR GFR 0.49 MG/DL (0.55-1.30); GLOMERULAR FILTRATION RATE > 60.0 (>32); GLUCOSE, FASTING 132 MG/DL (70-100); SODIUM LEVEL 129 MEQ/L (136-145)
[2019-01-04 22:00] VITALS: BP 104/55
[2019-01-05 02:33] LABS: BLOOD UREA NITROGEN 7 MG/DL (7-18); CALCIUM LEVEL 7.9 MG/DL (8.8-10.2); CARBON DIOXIDE LEVEL 27 MEQ/L (21-32); CHLORIDE LEVEL 96 MEQ/L (98-107); CREATININE FOR GFR 0.45 MG/DL (0.55-1.30); GLOMERULAR FILTRATION RATE > 60.0 (>32); GLUCOSE, FASTING 102 MG/DL (70-100); POTASSIUM SERUM 4.1 MEQ/L (3.5-5.1); SODIUM LEVEL 130 MEQ/L (136-145)
[2019-01-05] MEDS: HEPARIN SOD (PORCINE) 5000 UNITS/ML VIAL SC SCH ×2 (05:01→18:24)
[2019-01-05 05:04] VITALS: BP 135/61
[2019-01-05 06:00] VITALS: BP 135/61
[2019-01-05 07:04] LABS: BLOOD UREA NITROGEN 6 MG/DL (7-18); CALCIUM LEVEL 8.1 MG/DL (8.8-10.2); CARBON DIOXIDE LEVEL 28 MEQ/L (21-32); CHLORIDE LEVEL 97 MEQ/L (98-107); CREATININE FOR GFR 0.44 MG/DL (0.55-1.30); GLOMERULAR FILTRATION RATE > 60.0 (>32); GLUCOSE, FASTING 101 MG/DL (70-100); POTASSIUM SERUM 3.9 MEQ/L (3.5-5.1); SODIUM LEVEL 130 MEQ/L (136-145)
[2019-01-05] MEDS: THIAMINE 100 MG TAB PO SCH (09:04)
[2019-01-05] MEDS: FOLIC ACID 1 MG TAB PO SCH (09:04)
[2019-01-05] MEDS: MULTIVITAMINS/MINERALS THERAP 1 TAB PO SCH (09:04)
[2019-01-05] MEDS: LANSOPRAZOLE SUSPENSION 30 MG/10 ML ORAL SYRINGE (FIRST-LANSOPRAZOLE) PO SCH (09:04)
[2019-01-05] MEDS: SODIUM CHLORIDE 1 GM TAB PO SCH ×3 (09:37→18:23)
[2019-01-05 10:00] VITALS: BP 128/64
--- NOTE | 2019-01-05 13:02 | HPE ---
DATE OF ADMISSION: 01/03/2019 CHIEF COMPLAINT: Right hip pain. HISTORY OF PRESENT ILLNESS: This is an 88-year-old female who presents to the hospital with right hip pain. She had a mechanical fall 2 days ago. She was going to a restaurant, in the restroom her foot tripped on some shagged rug carpeting and she fell over onto her right side. She does have a history of having a right subtrochanteric femur fracture that I performed long intramedullary fixation now about 7 months ago, May this year. She states that she was walking around normally even without ambulatory aids or even a cane and feeling fine without pain in her hip or anywhere else for the last 6 months. Now she experiences pain mostly in her groin as well as somewhat in the hip and proximal femur. PAST MEDICAL HISTORY: Includes hypertension and colostomy for diverticulitis. MEDICATIONS: - atenolol - probiotic - calcium - vitamin B12 - multivitamin ALLERGIES: To SULFA MEDICATION, CEPHALOSPORINS, QUINOLONES, TETRACYCLINE, CLINDAMYCIN, and CODEINE. FAMILY HISTORY: No history of heart problems. SOCIAL HISTORY: She is nonsmoker but drinks 1-2 glasses of wine a day. She has three living daughters. PHYSICAL EXAMINATION: Well-appearing 88-year-old female. She looks quite well for her stated age. She is alert and times three. She responds quite appropriately. She remembers who I was from the previous surgery. Examination of the hip reveals no obvious overlying red swelling, gross deformity or atrophy. There is definite pain to the right pubic ramus on deep palpation and minimal pain to the hip with range of motion testing or of direct palpation at the proximal left femur. No pain at the knee or down distally. She has normal sensation of the foot. Her foot is was warm and well perfused with good pedal pulses. She is able wiggle her toes, dorsiflex and plantar flex the foot. No obvious abnormalities of left lower extremity. CT scan reviewed of the right femur. 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 The fracture is stabilized with intramedullary nail fixation. No femoral head dislocation. There appears to be nondisplaced fracture of the right superior pubic rami. The fracture alignment is well aligned anatomic. 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 I think most of her pain seems to be coming from this new pubic rami fracture on clinical exam as well as through the history. I recommend treating this nonoperative with weightbearing as tolerated, mobility as tolerated, seeing physical therapist and crutches or a walker as she needs and progressing her mobility from there. I will write an order for this. I thank the hospitalist greatly for their care. In terms of the delayed or hypertrophic nonunion, I think that if this continued to be a problem in the future one can consider dynamization of the nail versus exchange nailing or revision to plating, but I think given her advanced age and the fact that it was functioning well prior to this I would be hesitant to go ahead with that and prefer at least another few months of nonsurgical management of this. We will see how things go with her mobility. Thank you for involving me in her care.
[2019-01-05 14:00] VITALS: BP 143/66
[2019-01-05] MEDS ORDERED: traMADol 50 MG TAB PO PRN (14:15)
[2019-01-05] MEDS: LIDOCAINE 5% (LIDODERM) PATCH TD SCH (15:14)
--- NOTE | 2019-01-05 17:49 | IPNPDOC ---
Date Seen The patient was seen on 01/05/19. Progress Note SUBJECTIVE: c/o right groin, hip and sacral pain, better with ibuprofen. refuses to take tylenol, "because it gets stuck in mythroat." no c/o leg weakness. c/o bruising in the groin. OBJECTIVE: PHYSICAL EXAMINATION: VITAL SIGNS: pls see below GENERAL: Patient is kyphotic. She is awake, alert, oriented to herself, No use of respiratory accessory muscles. No icterus. No jaundice. Wears eyeglasses. Poor dentition. No jugular venous distention (JVD) or thyromegaly. LUNGS: Clear to auscultation. No wheezing or rales. HEART: S1, S2, sinus rhythm. ABDOMEN: Soft. Colostomy in the right lower quadrant. right groin ecchymoses EXTREMITIES: No cyanosis, clubbing. Right hip: Painful, tender to touch. Limited range of motion secondary to severe pain. Right pubic ramus tenderness. HOSPITAL MEDICATIONS: Lansoprazole, ibuprofen, multivitamin, folic acid, thiamine. Patient has refused sodium chloride. Heparin subcutaneous. 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 Fracture stabilized with gamma nail fixation. No femoral head dislocation. There is a nondisplaced fracture of the right pubic symphysis/superior ramus. May be acute. Correlate with clinical point tenderness. LABORATORY DATA:pls see below ASSESSMENT AND PLAN: This is an 88-year-old female, prior femoral fracture status post intramedullary wanda placement, presented to the hospital after she tripped and fell on a rug after one to two glasses of wine previously. Patient has had increased output through her colostomy bag and refuses to use salt in her diet. She was found to be hyponatremic with sodium level 126. There is right pubic ramus fracture on CT with the gamma nail fixation of the fracture of proximal femoral shaft, in satisfactory position and alignment. Hospitalist was called to admit for evaluation of hyponatremia and stabilization and pain control of the right hip pelvic pain. IMPRESSION: 1. Right pubic ramus fracture. Activity per orthopedics, Dr. Trinidad. Pain management with ibuprofen, as patient does not take Tylenol. prn trmadol. pt/ot 2. Known history of dysphagia. Patient has never had dilation in the past. She has learned to take only small tablets and has often refused any other new medications. Patient has no mental status changes, headaches, seizures, or changes in vision and will continue to monitor with serial metabolic panel. Patient has refused sodium tablets. Chest x-ray shows bibasilar fibroatelectasis. No lung nodules. 3. Recent fall after tripping on the rug. Once pain is controlled and activity level is clarified, will obtain physical therapy (PT) clearance and activity to be determined by orthopedic surgery. 4. History of chronic alcohol use. The patient will be placed on Clinical [place] Withdrawal Assessment (CIWA) protocol, multivitamin tablet and folate. 5. Deep vein thrombosis (DVT) prophylaxis with heparin subcutaneous. 6. Hyponatremia, improving on gentle hydration. VS, I&O, 24H, Fishbone Vital Signs/I&O Vital Signs Date Time Temp Pulse Resp B/P (MAP) Pulse Ox O2 Delivery O2 Flow Rate FiO2 01/05/19 14:00 98.2 73 18 143/66 (91) 99 01/04/19 08:05 1.0 01/04/19 01:48 Room Air I&O- Last 24 Hours up to 6 AM 01/05/19 06:00 Intake Total 1580 ml Output Total 300 ml Balance 1280 ml Laboratory Data 24H LABS Laboratory Tests 2 01/04/19 19:34: Anion Gap 8, Glomerular Filtration Rate > 60.0, Blood Urea Nitrogen 9, Cr eatinine 0.49L, Sodium Level 129L, Potassium Level 4.0, Chloride Level 96L, Carbon Dioxide Level 25, Calcium Level 7.8L 01/05/19 01:58: Anion Gap 7L, Glomerular Filtration Rate > 60.0, Blood Urea Nitrogen 7, Creatinine 0.45L, Sodium Level 130L, Potassium Level 4.1, Chloride Level 96L, Carbon Dioxide Level 27, Calcium Level 7.9L 01/05/19 06:20: Anion Gap 5L, Glomerular Filtration Rate > 60.0, Blood Urea Nitrogen 6L, Creatinine 0.44L, Sodium Level 130L, Potassium Level 3.9, Chloride Level 97L, Carbon Dioxide Level 28, Calcium Level 8.1L 01/05/19 12:33: Urine Color YELLOW, Urine Appearance CLOUDYH, Urine pH 6.0, Urine Specific Gravi ty 1.010, Urine Protein NEGATIVE, Urine Glucose (UA) NEGATIVE, Urine Ketones NEGATIVE, Urine Blood 1+H, Urine Nitrite POSITIVEH, Urine Bilirubin NEGATIVE, Urine Urobilinogen 0.2, Urine Leukocyte Esterase 3+H, Urine WBC (Auto) 169H, Urine RBC (Auto) 6H, Urine Hyaline Casts (Auto) 0, Urine Bacteria (Auto) 3+H, Urine Squamous Epithelial Cells 1, Urine Mucus (Auto) SMALL, Urine Sperm (Auto) CBC/BMP Laboratory Tests 01/04/19 19:34 Calcium Level 7.8 L 01/05/19 01:58 Calcium Level 7.9 L 01/05/19 06:20 Calcium Level 8.1 L Microbiology Microbiology 01/04/19 Gastrointestinal Tract Panel (PCR) - Final, Complete 01/05/19 Urine Culture, Received Pending MARY ROSENTHAL MD Jan 05, 2019 17:49
[2019-01-05] MEDS: IBUPROFEN 400 MG TAB PO PRN (18:40)
[2019-01-05] MEDS: **NOTE PATIENT COMMENT** MISC XX SCH (21:00)
[2019-01-05 22:00] VITALS: BP 126/64
[2019-01-06] MEDS: HEPARIN SOD (PORCINE) 5000 UNITS/ML VIAL SC SCH ×2 (05:47→18:43)
[2019-01-06 06:00] VITALS: BP 127/60
[2019-01-06] MEDS ORDERED: PILL CUTTER 1 EACH XX PRN (08:45)
[2019-01-06 09:49] LABS: TOTAL 25(OH) VITAMIN D 42.1 NG/ML (30.0-100.0); VITAMIN B12 LEVEL > 2000 PG/ML (247-911)
[2019-01-06] MEDS: LANSOPRAZOLE SUSPENSION 30 MG/10 ML ORAL SYRINGE (FIRST-LANSOPRAZOLE) PO SCH (10:37)
[2019-01-06] MEDS: LIDOCAINE 5% (LIDODERM) PATCH TD SCH (10:37)
[2019-01-06] MEDS: FOLIC ACID 1 MG TAB PO SCH (10:37)
[2019-01-06] MEDS: MULTIVITAMINS/MINERALS THERAP 1 TAB PO SCH (10:37)
[2019-01-06] MEDS: SODIUM CHLORIDE 1 GM TAB PO SCH ×3 (10:37→18:43)
[2019-01-06] MEDS: THIAMINE 100 MG TAB PO SCH (10:37)
[2019-01-06] MEDS: IBUPROFEN 400 MG TAB PO PRN ×2 (10:39→23:59)
[2019-01-06 14:00] VITALS: BP 121/74
[2019-01-06] MEDS: **NOTE PATIENT COMMENT** MISC XX SCH (21:12)
--- NOTE | 2019-01-06 21:54 | IPNPDOC ---
Date Seen The patient was seen on 01/06/19. Progress Note SUBJECTIVE: still c/o pain with ambulation despite prn pain meds. no LE weakness, or recurrent falls. denies recurrent high output through colostomy. OBJECTIVE: PHYSICAL EXAMINATION: VITAL SIGNS: pls see below GENERAL: Patient is kyphotic. conversant. no faical asymmetry. no respiratory accessory muscles. LUNGS: Clear to auscultation. No wheezing or rales. HEART: S1, S2, sinus rhythm. ABDOMEN: Soft. Colostomy in the right lower quadrant. right groin ecchymoses EXTREMITIES: No cyanosis, clubbing. Right hip: Painful, tender to touch. Limited range of motion secondary to severe pain. Right pubic ramus tenderness. HOSPITAL MEDICATIONS: Lansoprazole, ibuprofen, multivitamin, folic acid, thiamine. Patient has refused sodium chloride. Heparin subcutaneous. 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 Fracture stabilized with gamma nail fixation. No femoral head dislocation. There is a nondisplaced fracture of the right pubic symphysis/superior ramus. May be acute. Correlate with clinical point tenderness. LABORATORY DATA:pls see below ASSESSMENT AND PLAN: This is an 88-year-old female, prior femoral fracture status post intramedullary wanda placement, presented to the hospital after she tripped and fell on a rug after one to two glasses of wine previously. Patient has had increased output through her colostomy bag and refuses to use salt in her diet. She was found to be hyponatremic with sodium level 126. There is right pubic ramus fracture on CT with the gamma nail fixation of the fracture of proximal femoral shaft, in satisfactory position and alignment. Hospitalist was called to admit for evaluation of hyponatremia and stabilization and pain control of the right hip pelvic pain. Right pubic ramus fracture. Activity per orthopedics, Dr. Trinidad. Pain management with ibuprofen,prn trmadol. pt/ot Known history of dysphagia. Patient has never had dilation in the past. Hyponatremia, improved due to increased output via colostomy. negative gi panel. Patient has no mental status changes, headaches, seizures, or changes in vision and will continue to monitor with serial metabolic panel. Patient has refused sodium tablets. Chest x-ray shows bibasilar fibroatelectasis. No lung nodules. Recent fall after tripping on the rug. PT for home clearance. History of chronic alcohol use. The patient will be placed on Clinical [place] Withdrawal Assessment (CIWA) protocol, multivitamin tablet and folate. Deep vein thrombosis (DVT) prophylaxis with heparin subcutaneous. Colostomy duet o diverticulitis gi panel negative. VS, I&O, 24H, Fishbone Vital Signs/I&O Vital Signs Date Time Temp Pulse Resp B/P (MAP) Pulse Ox O2 Delivery O2 Flow Rate FiO2 01/06/19 14:00 97.7 82 18 121/74 (90) 97 01/04/19 08:05 1.0 01/04/19 01:48 Room Air I&O- Last 24 Hours up to 6 AM 01/06/19 06:00 Intake Total 1370 ml Output Total 850 ml Balance 520 ml Laboratory Data Microbiology Microbiology 01/04/19 Gastrointestinal Tract Panel (PCR) - Final, Complete 01/05/19 Urine Culture, Received Pending MARY ROSENTHAL MD Jan 06, 2019 21:54
[2019-01-06 22:00] VITALS: BP 146/67
[2019-01-07] MEDS: HEPARIN SOD (PORCINE) 5000 UNITS/ML VIAL SC SCH (05:23)
[2019-01-07 06:00] VITALS: BP 157/81
[2019-01-07] MEDS: SODIUM CHLORIDE 1 GM TAB PO SCH ×2 (07:47→12:29)
[2019-01-07] MEDS: MULTIVITAMINS/MINERALS THERAP 1 TAB PO SCH (07:48)
[2019-01-07] MEDS: FOLIC ACID 1 MG TAB PO SCH (07:48)
[2019-01-07] MEDS: THIAMINE 100 MG TAB PO SCH (08:50)
[2019-01-07] MEDS: LANSOPRAZOLE SUSPENSION 30 MG/10 ML ORAL SYRINGE (FIRST-LANSOPRAZOLE) PO SCH (08:52)
[2019-01-07] MEDS: LIDOCAINE 5% (LIDODERM) PATCH TD SCH (08:52)
[2019-01-07] MEDS ORDERED: ULTRACET TAB PO SCH (09:00)
[2019-01-07] MEDS ORDERED: CEFDINIR 300 MG CAP (OMNICEF) PO SCH (10:00)
[2019-01-07] MEDS ORDERED: THIA100TA PO (10:31)
[2019-01-07] MEDS ORDERED: FOLI1TAB11 PO (10:31)
[2019-01-07] MEDS ORDERED: TRAM50TA2 PO (10:31)
[2019-01-07] MEDS ORDERED: CEFD300CAP PO (10:31)
[2019-01-07] MEDS ORDERED: IBUP40TA PO (10:31)
[2019-01-07] MEDS ORDERED: NITR-67 PO (11:33)
--- NOTE | 2019-01-07 23:30 | DS.PDOC ---
Discharge Summary General Date of Admission Jan 03, 2019 at 23:16 Date of Discharge 01/07/19 Discharge Summary PROCEDURES PERFORMED DURING STAY: [None]. 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 UTI Hypertension Chronic anemia with iron deficiency chronic alcohol abuse H/o Right femoral subtrochanteric fracture fixed by IM nailing in may 2018. Chronic dysphagia COMPLICATIONS/CHIEF COMPLAINT: Femur Fracture. HISTORY OF PRESENT ILLNESS: Please see history and physical HOSPITAL COURSE: This is an 88-year-old female, with chronic hyponatremiaprior r ight femoral subtrochanteric fracture in May 2018 status post intramedullary wanda placement, presented to the hospital after she tripped and fell on a rug after one to two glasses of wine previously. Patient has had increased output through her colostomy bag and refuses to use salt in her diet. She was found to be hyponatremic with sodium level 126. There is right pubic ramus fracture on CT with the gamma nail fixation of the fracture of proximal femoral shaft, in satisfactory position and alignment. Patient was admitted for hyponatremia, and pain control of the right hip and right symphysis pubis fracture causing groin pain. Right pubic ramus fracture. s/p Mechanical fall after tripping on the rug. to STR as per PT. Follow up orthopedics, Dr. Trinidad. Pain management with ibuprofen,prn trmadol. Acute on chronic Hyponatremia, improved due to increased output via colostomy. negative gi panel. with increased urine osmolality and urine sodium of 17 favors intravascular volume depletion improved with NS. her chronic hyponatremia is probably due to SIADH as worked up before. continue with salt tabs and free water restriction of 1.5 liters. UTI with Ecoli allergic to fluoroquinolone and cephalosporin so given nitrofurantoin Right femoral subtrochanteric fracture in may 2018 As per ortho has not healed fully yet Has IM nail in place. pain control as above and PT . History of chronic alcohol use. No signs of withdrawal in hospital continue multivitamin tablet and folate, thiamine Colostomy in place from due to diverticulitis in the past with colectomy with colostomy. Known history of dysphagia. Patient has never had dilation in the past. DISCHARGE MEDICATIONS: Please see below. ALLERGIES: Please see below. PHYSICAL EXAMINATION ON DISCHARGE: VITAL SIGNS: Please see below. GENERAL: Awake , alert , oriented, sitting up in chair in no acute distress. HEENT: moist mucous membranes, an icteric eyes, Neck: No JVD no thyromegaly LUNGS: , Kyphosis, Clear to auscultation. No wheezing or rales. HEART: S1, S2, sinus rhythm. N rub, murmur or gallop ABDOMEN: Soft. Colostomy in the right lower quadrant. right groin ecchymoses EXTREMITIES: No cyanosis, clubbing. No edema MUSCULOSKELETAL: Right hip: Painful, tender to touch. Limited range of motion se condary to pain. Right pubic ramus tenderness. LABORATORY DATA: Please see below. 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 Fracture stabilized with gamma nail fixation. No femoral head dislocation. There is a nondisplaced fracture of the right pubic symphysis/superior ramus. May be acute. Correlate with clinical point tenderness. ACTIVITY: [As tolerated]. DIET: As tolerated DISCHARGE PLAN: [facility] DISPOSITION: [facility]. DISCHARGE INSTRUCTIONS: Follow up with MD in [place] Follow up with orthopedics as directed. Please check basic metabolic panel in 2 days. DISCHARGE CONDITION: [Stable]. TIME SPENT ON DISCHARGE: 35 minutes. Vital Signs/I&Os Vital Signs Date Time Temp Pulse Resp B/P (MAP) Pulse Ox O2 Delivery O2 Flow Rate FiO2 01/07/19 08:51 18 01/07/19 06:00 98.6 83 157/81 (106) 96 01/04/19 08:05 1.0 01/04/19 01:48 Room Air I&O- Last 24 Hours up to 6 AM 01/07/19 06:00 Intake Total 1050 ml Output Total 350 ml Balance 700 ml Laboratory Data CBC/BMP Item Value Date Time Sodium Level 130 MEQ/L L 01/05/19 0620 Potassium Level 3.9 MEQ/L 01/05/19 0620 Chloride Level 97 MEQ/L L 01/05/19 0620 Carbon Dioxide Level 28 MEQ/L 01/05/19 0620 Anion Gap 5 MEQ/L L 01/05/19 0620 Blood Urea Nitrogen 6 MG/DL L 01/05/19 0620 Creatinine 0.44 MG/DL L 01/05/19 0620 Glomerular Filtration Rate > 60.0 01/05/19 0620 Fasting Glucose 101 MG/DL H 01/05/19 0620 White Blood Count 4.8 10^3/uL 01/04/19 0803 Red Blood Count 2.84 10^6/uL L 01/04/19 0803 Hemoglobin 9.1 g/dl L 01/04/19 0803 Hematocrit 26.9 % L 01/04/19 0803 Mean Corpuscular Volume 94.7 fl 01/04/19 0803 Mean Corpuscular Hemoglobin 32.0 pg 01/04/19 08 Mean Corpuscular Hemoglobin Concent 33.8 g/dl 01/04/19 08 Red Cell Distribution Width 13.6 % 01/04/19 08 Platelet Count 143 10^3/uL L 01/04/19 0803 Microbiology Microbiology 01/04/19 Gastrointestinal Tract Panel (PCR) - Final, Complete 01/05/19 Urine Culture - Final, Complete Escherichia Coli Discharge Medications Scheduled Atenolol (Atenolol) 50 Mg Tab, 50 MG PO QHS, (Reported) Bacillus Coagulans (Probiotic) 1 Each Tab.chew, 1 CHW PO BID, (Reported) Calcium Carbonate (Calcium) 500 Mg Tab.chew, 500 MG PO DAILY, (Reported) Cyanocobalamin (Vitamin B-12) (Liquid B-12) 1,000 Mcg/15 Ml Liquid, 1,000 MCG PO DAILY, (Reported) Folic Acid (Folic Acid) 1 Mg Tablet, 1 MG PO DAILY Nitrofurantoin Macrocrystal (Nitrofurantoin) 100 Mg Capsule, 1 CAP PO BID Thiamine Hcl (Vitamin B-1) 100 Mg Tablet, 100 MG PO DAILY Vit C/E/Zn/Coppr/Lutein/Zeaxan (Preservision Areds 2 Softgel) 1 Each Capsule, 1 EACH PO DAILY, (Reported) PT TAKES CHEWABLE Scheduled PRN Ibuprofen (Ibuprofen) 400 Mg Tablet, 400 MG PO Q12HP PRN for PAIN Phenylephrine/Dm/Acetaminop/GG (Severe Cold and Flu Liquid) 355 Ml Liquid, 1 DOSE PO DAILY PRN for CONGESTION, (Reported) Tetrahydroz/Dext 70/Peg 400/Pv (Eye Drops) 15 Ml Drops, 1 FOUZIA OU BID PRN for DRY EYES, (Reported) Tramadol HCl (Tramadol HCl) 50 Mg Tablet, 1 TAB PO BIDP PRN for pain Allergies Coded Allergies: Sulfa (Sulfonamide Antibiotics) (Verified Allergy, Severe, ALTERED MENTATION; FEELS LIKE THE ROOM IS SPINNING, 01/03/19) Cephalosporins (Verified Allergy, Intermediate, 01/03/19) Quinolones (Verified Allergy, Intermediate, 01/03/19) Tetracyclines (Verified Allergy, Intermediate, 01/03/19) clindamycin (Verified Allergy, Intermediate, 01/03/19) codeine (Verified Adverse Reaction, Mild, NAUSEA; "FEELS SICK", 01/03/19) NATE THOMASON MD Jan 07, 2019 23:30
[2019-01-07] MEDS ORDERED: SODI1TAB6 PO (23:33)
== END 2019-01-07 13:48 | DRG 536 ==
LOC: M ED 19:03 → M ED INP 23:16 → M MSPAV 01-04 12:53
PROVIDERS: ADMIT Internal Medicine; ATTEND Internal Medicine Nephrology
DX: S32.511A Fracture of superior rim of right pubis, initial encounter for closed fracture (principal); E22.2 Syndrome of inappropriate secretion of antidiuretic hormone; S72.21XK Displaced subtrochanteric fracture of right femur, subsequent encounter for closed fracture with nonunion; N39.0 Urinary tract infection, site not specified; R00.1 Bradycardia, unspecified; I10 Essential (primary) hypertension; R13.10 Dysphagia, unspecified; M25.551 Pain in right hip; F10.10 Alcohol abuse, uncomplicated; Z66 Do not resuscitate; D50.9 Iron deficiency anemia, unspecified; B96.20 Unspecified Escherichia coli [E. coli] as the cause of diseases classified elsewhere; W18.09XA Striking against other object with subsequent fall, initial encounter; Y92.511 Restaurant or cafe as the place of occurrence of the external cause; Z93.3 Colostomy status; Z88.2 Allergy status to sulfonamides; Z88.1 Allergy status to other antibiotic agents; Z88.5 Allergy status to narcotic agent; Z79.899 Other long term (current) drug therapy; Y99.8 Other external cause status

== ENCOUNTER → 2019-01-23 | Outpatient (REF) ==
[~2019-01-23] MED LIST changes: +CALC500C16 PO; +CEFD300CAP PO; +CVS1CHW58 PO; +EYEDRO5 OU; +FOLI1TAB11 PO; +IBUP40TA PO; +NITR-67 PO; +PRES10CA2 PO; +SODI1TAB6 PO; +THIA100TA PO; +TRAM50TA2 PO; +[UNRECOGNIZED DRUG - CODE] PO; +[UNRECOGNIZED DRUG - CODE] PO
[2019-01-23 08:33] LABS: BASO % 0.7 % (0.0-1.0); EOS # 0.1 10^3/uL (0.0-0.5); EOS % 4.4 % (0.0-3.0); HEMATOCRIT 29.4 % (36.0-47.0); HEMOGLOBIN 9.2 g/dl (12.0-15.5); LYMPH % 35.3 % (24.0-44.0); MEAN CORPUSCULAR HEMOGLOBIN 31.4 pg (27.0-33.0); MEAN CORPUSCULAR HGB CONC 31.3 g/dl (32.0-36.5); MEAN CORPUSCULAR VOLUME 100.3 fl (80.0-96.0); MONO # 0.4 10^3/uL (0.0-0.8); NEUTROPHILS # 1.2 10^3/uL (1.5-8.5); NEUTROPHILS % 45.2 % (36.0-66.0); PLATELET COUNT, AUTOMATED 270 10^3/uL (150-450); RED BLOOD COUNT 2.93 10^6/uL (4.00-5.40); WHITE BLOOD COUNT 2.7 10^3/uL (4.0-10.0)
[2019-01-23 09:00] LABS: BLOOD UREA NITROGEN 7 MG/DL (7-18); CALCIUM LEVEL 8.9 MG/DL (8.8-10.2); CARBON DIOXIDE LEVEL 29 MEQ/L (21-32); CHLORIDE LEVEL 100 MEQ/L (98-107); CREATININE FOR GFR 0.42 MG/DL (0.55-1.30); GLOMERULAR FILTRATION RATE > 60.0 (>32); GLUCOSE, FASTING 85 MG/DL (70-100); SODIUM LEVEL 135 MEQ/L (136-145)
== END ==
LOC: SKLAB3 07:00
PROVIDERS: ATTEND Family Medicine
DX: E87.1 Hypo-osmolality and hyponatremia (principal)

== ENCOUNTER 2020-02-21 19:29 | Observation (INO) | payer MEDICARE ==
[~2020-02-21] VITALS: Ht 154.9 cm; Wt 54.5 kg
[~2020-02-21 19:29] MED LIST changes: -AMLO10TA5 PO; +AMLO1TAB24; +AMLO1TAB25 PO; -AMLO5TAB6; +[UNRECOGNIZED DRUG - CODE] PO; -[UNRECOGNIZED DRUG - CODE] PO
[2020-02-21] MEDS ORDERED: GLUCAGON INJ 1MG VIAL IV STA (20:10)
--- NOTE | 2020-02-21 21:06 | REPVR ---
PROCEDURE INFORMATION: Exam: XR Soft Tissue Neck Exam date and time: 02/21/2020 8:10 PM Age: 89 years old Clinical indication: Other: ? Fb, fish bone; Additional info: ? Fb; Fish bone TECHNIQUE: Imaging protocol: XR of the soft tissues of the neck. COMPARISON: CT Spine,cervical w/o contrast 01/03/2019 10:02 PM FINDINGS: Airway: Clear. No abnormal narrowing. No radiopaque foreign bodies are seen. Soft tissues: Normal. Normal epiglottis. 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 No fracture or malalignment. IMPRESSION: 1. No radiopaque foreign bodies are seen. Neck CT would be more sensitive for evaluation of small foreign bodies such as a fishbone however. 2. 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 Electronically signed by: Rogelio Conley On 02/21/2020 21:06:43 PM
[2020-02-21] MEDS ORDERED: IRBE75TA4 PO (22:39)
[2020-02-21] MEDS ORDERED: MULT1TAB50 PO (22:39)
[2020-02-21] MEDS ORDERED: MIDAZOLAM INJ 2MG/2ML VIAL (J2250 PER 1MG) As Ordered ONE (22:56)
[2020-02-21] MEDS ORDERED: propofoL 200 MG/20 ML VIAL As Ordered ONE (22:56)
[2020-02-21] MEDS ORDERED: LIDOCAINE 2% 100MG/5ML SDV (FOR ANES.) As Ordered ONE (22:56)
[2020-02-21] MEDS ORDERED: LR 1,000 ML IV SCH (23:45)
[2020-02-21] MEDS ORDERED: fentaNYL 100 MCG/2 ML INJECTION (J3010) IV PRN (23:45)
[2020-02-21] MEDS ORDERED: ONDANSETRON 4MG/2ML VIAL IV PRN (23:45)
[2020-02-21 23:50] VITALS: BP 157/78
--- NOTE | 2020-03-01 13:19 | DS ---
DATE OF ADMISSION: 02/21/2020 DATE OF DISCHARGE: 02/22/2020 PRINCIPAL DIAGNOSIS: Food impaction/foreign body. ASSOCIATED DIAGNOSES: History of fractured femur, history of hypertension, history of diverticular disease, history of colostomy for diverticulitis, history of hysterectomy, history of urinary tract infection, history of chronic anemia and leukopenia. BRIEF HISTORY OF PRESENT ILLNESS: Patient was eating some cod earlier today and developed dysphagia, was not able to bring this back up. She has had many years of dysphagia issues and usually is able to eat/chew her food well enough, however this piece was too big and presents now for removal of this. HOSPITAL COURSE SUMMARY: The patient was brought to the operating room where she underwent EGD with removal of foreign body/food impaction and was discharged home thereafter. Was continued on her usual medications and was instructed to continue on her probiotic, calcium, irbesartan, multivitamins, and eye drops after discharge and to start on omeprazole on a daily basis. [facility]
--- NOTE | 2020-03-01 13:48 | RO ---
DATE OF OPERATION: 02/21/2020 PREOPERATIVE DIAGNOSIS: Esophageal foreign body/food impaction. POSTOPERATIVE DIAGNOSIS: Esophageal foreign body/food impaction with esophageal stricture, cervical esophageal stricture as well as GE junction. PROCEDURE: EGD with removal of foreign body/food impaction. SURGEON: Jp Barreto M.D. ANESTHESIA: IV sedation. BRIEF PROCEDURE SUMMARY: The patient was brought to the operating room and was given general IV sedation. After adequate IV sedation, the patient was placed in a left lateral decubitus position and the gastroscope was inserted into the posterior oropharynx. Some of the fish that she had choked on was in the posterior oropharynx and I was able to irrigate this out/remove this but right past the cervical esophagus at 15 cm there was a shelf in the narrowing in the esophagus and this is where the food was impacted. I was able to remove this with a combination of breaking this up as well as irrigating this distally but it definitely was narrowed in this area and was probably about 1.2 to 1.0 in size. Distally the scope was inserted through the esophagus into the distal esophagus where again at the GE junction there was some narrowing, not as severe as the proximal narrowing, however still visible and probably reflexive of reflux esophagitis. The stomach appeared normal without any significant abnormalities in the stomach. The bulb of the duodenum and the post-bulbar duodenum looked normal. The scope was brought back into the stomach, retroflexed and revealed no significant abnormalities at the GE junction and gradually the scope was removed at this time. It was removed in its entirely and the patient tolerated this, was awakened from her sedation, brought to the recovery room awake, alert, and hemodynamically stable. The plan is to have the patient undergo outpatient evaluation with probable balloon dilatation at a later date. [facility]
== END 2020-02-22 01:05 | disposition home or self-care (01) ==
LOC: M ED 19:29 → M ED INP 19:30
PROVIDERS: ADMIT Surgery; ATTEND Surgery
DX: T18.128A Food in esophagus causing other injury, initial encounter (principal); Y92.89 Other specified places as the place of occurrence of the external cause; Z88.1 Allergy status to other antibiotic agents; Z88.2 Allergy status to sulfonamides; Z88.5 Allergy status to narcotic agent
CPT/HCPCS: 43247; 70360; 96374; 99285; G0378; J1610; J2250; U0002